=== PATIENT | male | born 1985 | race Caucasian/White ===

== ENCOUNTER 2017-01-22 09:47 | Outpatient (CLI) | payer MEDICARE, MEDICAID ==
[2017-01-22 13:05] LABS: BASOPHILS # (AUTO) 0.1 10^3/uL (0.0-0.1); BASOPHILS % (AUTO) 0.5 %; EOSINOPHILS # (AUTO) 0.2 10^3/uL (0.0-0.7); EOSINOPHILS % (AUTO) 1.7 %; HCT - HEMATOCRIT 47.5 % (42.0-52.0); HGB - HEMOGLOBIN 15.6 g/dL (14.0-18.0); LYMPHOCYTES # (AUTO) 2.4 10^3/uL (1.5-3.5); LYMPHOCYTES % (AUTO) 23.3 %; MEAN CORPUSCULAR HEMOGLOBIN 28.9 pg (27.0-31.0); MEAN CORPUSCULAR HGB CONC 32.8 g/dL (32.0-36.0); MEAN CORPUSCULAR VOLUME 88.1 fL (80.0-94.0); MEAN PLATELET VOLUME 9.9 fL (7.4-11.4); MONOCYTES # (AUTO) 0.7 10^3/uL (0.0-1.0); MONOCYTES % (AUTO) 6.8 %; NEUTROPHILS # (AUTO) 7.1 10^3/uL (1.5-6.6); NEUTROPHILS % (AUTO) 67.7 %; NUCLEATED RED BLOOD CELLS AUTO 0.1 /100WBC; RED BLOOD COUNT 5.39 10^6/uL (4.70-6.10); RED CELL DISTRIBUTION WIDTH 14.4 % (12.0-15.0); UNCORRECTED WHITE BLOOD COUNT 10.5 x10^3/uL; WHITE BLOOD COUNT 10.5 x10^3/uL (4.8-10.8)
[2017-01-22 14:03] LABS: ALBUMIN/GLOBULIN RATIO 1.4 (1.0-2.2); BILIRUBIN,TOTAL 0.6 mg/dL (0.2-1.0); BUN - BLOOD UREA NITROGEN 11 mg/dL (6-20); CARBON DIOXIDE - CO2 24 mmol/L (21-32); CHLORIDE 104 mmol/L (101-111); CHOL/HDL RATIO 3.1 (<5.0); CHOLESTEROL 138 mg/dL; CREATININE 0.9 mg/dL (0.6-1.2); GFR - MDRD 98 (>89); GLUCOSE 93 mg/dL (70-100); HDL CHOLESTEROL 45 mg/dL; LDL/HDL RATIO 1.8 (<3.6); POTASSIUM 3.6 mmol/L (3.5-5.0); SODIUM 137 mmol/L (135-145); TOTAL PROTEIN 7.7 g/dL (6.7-8.2); TRIGLYCERIDES 49 mg/dL; VLDL CHOLESTEROL 10 mg/dL
== END 2017-01-22 09:48 | disposition home or self-care (01) ==
LOC: LAB.N 09:47
PROVIDERS: ATTEND Physician Assistant Medical
DX: Q05.9 Spina bifida, unspecified (principal)
CPT/HCPCS: 36415; 80053; 80061; 84443; 85025

== ENCOUNTER 2019-08-10 12:03 | Outpatient (CLI) | payer MEDICARE, MEDICAID | END 2019-08-10 12:04 | disposition critical access hospital (66) | LOC: EMS 12:03 | PROVIDERS: ATTEND Surgery | DX: S09.90XA Unspecified injury of head, initial encounter (principal); W05.0XXA Fall from non-moving wheelchair, initial encounter; Y92.008 Other place in unspecified non-institutional (private) residence as the place of occurrence of the external cause | CPT/HCPCS: A0425; A0429 ==

== ENCOUNTER 2019-08-10 12:32 | Inpatient (IN) | payer MEDICARE, MEDICAID ==
--- NOTE | 2019-08-10 12:49 | ED Physician Documentation ---
PD HPI Fall - Stated complaint Stated Complaint: FALL - Chief complaint Chief Complaint: Trauma Ch/Bk - History obtained from History obtained from: Patient - History of Present Illness Mechanism of injury: Syncope Fall distance: Sitting position (He states he had been ill for the past week with nausea and episodic vomiting and poor intake and also a cough with some productive sputum and a sore throat. He denies fevers but has had feeling of chills and also general weakness. He was sitting in the toilet and finished going to the bathroom and then was starting to transfer from the toilet to his wheelchair and felt generally weak lightheaded and felt that he passed out. He remembered starting to fall but not the fall itself he apparently struck the left side of his face and has an abrasion and some swelling lateral periorbital and forehead. He states he also had some pain in the anterior chest. He denied neck pain or belly pain. His roommate I believe called EMS and he was brought here for evaluation.) Where injury occurred: Home Timing - onset: How many weeks ago (1 week of general illness, cough, nausea and vomiting and poor oral intake. He states he had not eaten well for the last couple of days due to nausea. He has had cough with some trouble breathing. He denied headache.) Injury(ies) location: Face, Chest (anterior chest hurts since falling). No: Head, Neck, Abdomen Quality of pain: Aching Associated symptoms: LOC, Nasal drainage, Weakness, Dyspnea, Nausea / vomiting. No: AMS, Amnesia, Paresthesias Symptoms improve with: Rest Contributing factors: No: Anticoagulated, Intoxicated Similar symptoms before: Has not had sx before Recently seen: Not recently seen (He does not take any regular daily medicines. He states he had been feeling well and doing normal activities and had not been ill for 1 or 2 years and doing well at home.) Review of Systems Constitutional: reports: Chills, Myalgias, Fatigue. denies: Fever, Weight Loss Nose: reports: Congestion. denies: Rhinorrhea / runny nose Throat: reports: Sore throat Cardiac: reports: Chest pain / pressure (just since the fall/syncope). denies: Palpitations Respiratory: reports: Dyspnea, Cough (for a week). denies: Wheezing GI: reports: Nausea, Vomiting. denies: Abdominal Pain, Diarrhea : denies: Dysuria, Frequency Skin: reports: Abrasion (s) (left face). 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 ) Endocrine/Autoimmune: None GI: None Musculoskeletal: Paraplegia - Past Surgical History Past Surgical History: Yes - Present Medications Home Medications: Ambulatory Orders Medication Instructions Recorded Confirmed No Known Home Medications 08/10/19 08/10/19 - Allergies Allergies/Adverse Reactions: Allergies Allergy/AdvReac Type Severity Reaction Status Date / Time No Known Drug Allergies Allergy Verified 08/10/19 12:40 - Social History Does the pt smoke?: Yes Smoking Status: Current every day smoker Does the pt drink ETOH?: Yes Does the pt have substance abuse?: Yes - Immunizations Immunizations are current?: Yes PD ED PE NORMAL - Vitals Vital signs reviewed: Yes - General General: Alert and oriented X 3, Well developed/nourished - HEENT HEENT: Atraumatic (he is not tender in the scalp. Shunt with reservoir palpable left parietal without tenderness. ), PERRL, EOMI, Other (left facial abrasion and contusion lateral left periorbital and forehead. ). No: Pharynx benign (tongue bruise noted left anterior without bleeding. ) - Neck Neck: Supple, no meningeal sign, No bony TTP, No adenopathy - Cardiac Cardiac: RRR, No murmur - Respiratory Respiratory: No respiratory distress. No: Clear bilaterally (mild congested sounds upper lungs. Some chest wall tenderness mid sternal area without deformity nor crepitance. ) - Abdomen Abdomen: Normal bowel sounds, Soft, Non tender, Non distended - Male Male : Deferred - Rectal Rectal: Deferred - Back Back: No CVA TTP, No spinal TTP - Derm Derm: Normal color, Warm and dry - Extremities Extremities: No edema, Other (muscle atrophy in both legs, and some clubbing shape of feet/ankles.) Results - Vitals Vitals: Vital Signs - 24 hr 08/10/19 08/10/19 08/10/19 12:40 12:51 12:52 Temperature 37.2 C 37.2 C Heart Rate 96 84 94 Respiratory 16 20 19 Rate Blood Pressure 131/74 H 122/81 H 122/81 H O2 Saturation 96 92 93 08/10/19 15:15 Temperature Heart Rate 85 Respiratory 19 Rate Blood Pressure 112/72 O2 Saturation 94 Oxygen O2 Source Room air - Labs Labs: Laboratory Tests 08/10/19 08/10/19 13:20 13:20 WBC 23.5 H RBC 4.88 Hgb 13.8 L Hct 39.6 L MCV 81.1 MCH 28.3 MCHC 34.8 RDW 12.2 Plt Count 411 MPV 10.7 Neut # (Auto) 19.8 H Lymph # (Auto) 1.6 [place] # (Auto) 1.9 H Eos # (Auto) 0.1 Baso # (Auto) 0.1 Absolute Nucleated RBC 0.00 Nucleated RBC % 0.0 Manual Slide Review Indicated WBC Morphology Platelet Estimate NORMAL (130-450,000) Platelet Morphology NORMAL APPEARANCE RBC Morph Micro Appear 2+ HYPOCHROMASIA Sodium 119 L* Potassium 1.8 L* Chloride 58 L* Carbon Dioxide 41 H* Anion Gap 20.0 H BUN 40 H Creatinine 1.3 H Estimated GFR (MDRD) 63 L Glucose 144 H Calcium 7.9 L Magnesium 3.1 H Total Bilirubin 1.8 H AST 55 H ALT 29 Alkaline Phosphatase 62 Total Protein 6.6 L Albumin 3.3 Globulin 3.3 Albumin/Globulin Ratio 1.0 Lipase 21 L Ethyl Alcohol < 5.0 - Rads (name of study) head CT Radiology: Prelim report reviewed (Shunt in place with reservoir and no acute abnormality noted. No intracranial bleeding.), See rad report cervical CT Radiology: Prelim report reviewed (No acute fractures or abnormalities.), See rad report chest CT Radiology: Prelim report reviewed (No signs of fractures. There are scattered small groundglass appearing infiltrates.), See rad report PD MEDICAL DECISION MAKING - ED course Complexity details: re-evaluated patient (The patient seem to be doing well here in the ER. He was still interacting and without any respiratory distress. Oxygenation remained normal. He was given some IV fluids initially a small bolus and then 200 mils per hour of normal saline so as to provide a slower increase in his sodium and not over hydrate. I had talked with the hospitalist and he was going to be going to the floor when he developed generalized seizure. It was noted promptly by nursing staff and he was rolled to his side and his airway was clear and suctioned. The seizure continued for over 1 to 2 minutes and so he was given Versed 2 mg IV which seemed to stop the seizure. He is now sedate. His oxygenation is adequate with a partial facemask at this time and a oral pharyngeal airway was placed to help with his breathing which was slightly's sonorous during the seizure and just postictal. This will be removed as he wakens up better. I recontacted the hospitalist and will change disposition to the ICU. This does raise possibility of his initial syncopal episode and coming to us may have been seizure instead. I would attribute it likely to the hyponatremia and illness as there is no history of seizure disorder.), considered differential, d/w patient - Critical Care Time(min): 45 Time Includes: Direct patient care, Reassess patient, Document care, Coordinate care, Medical consult Data interpretation: Labs, Pulse ox, See progress note Departure - Departure Disposition: 66 [facility] DC/Xfer Clinical Impression: General weakness, Acute pneumonia, Electrolyte abnormality, Dehydration, Seizure Syncope Qualifiers: Syncope type: unspecified Qualified Code(s): R55 - Syncope and collapse Condition: Stable Record reviewed to determine appropriate education?: Yes
[2019-08-10] MEDS ORDERED: SODIUM CHLORIDE 0.9% 1,000 ML IV ONE ×2 (13:10→14:35)
[2019-08-10] MEDS ORDERED: MORPHINE 2 MG/ML CARPUJECT IVP STA (13:14)
[2019-08-10] MEDS ORDERED: KETOROLAC 30 MG/ML VIAL IVP STA (13:14)
[2019-08-10 13:32] LABS: BASOPHILS # (AUTO) 0.1 10^3/uL (0.0-0.1); BASOPHILS % (AUTO) 0.3 %; EOSINOPHILS # (AUTO) 0.1 10^3/uL (0.0-0.7); EOSINOPHILS % (AUTO) 0.3 %; HGB - HEMOGLOBIN 13.8 g/dL (14.0-18.0); LYMPHOCYTES # (AUTO) 1.6 10^3/uL (1.5-3.5); LYMPHOCYTES % (AUTO) 6.7 %; MEAN CORPUSCULAR HEMOGLOBIN 28.3 pg (27.0-31.0); MEAN CORPUSCULAR HGB CONC 34.8 g/dL (32.0-36.0); MEAN CORPUSCULAR VOLUME 81.1 fL (80.0-94.0); MEAN PLATELET VOLUME 10.7 fL (7.4-11.4); MONOCYTES # (AUTO) 1.9 10^3/uL (0.0-1.0); MONOCYTES % (AUTO) 7.9 %; NEUTROPHILS # (AUTO) 19.8 10^3/uL (1.5-6.6); NEUTROPHILS % (AUTO) 83.8 %; PLT - PLATELET COUNT 411 10^3/uL (130-450); RED BLOOD COUNT 4.88 10^6/uL (4.70-6.10); RED CELL DISTRIBUTION WIDTH 12.2 % (12.0-15.0); WHITE BLOOD COUNT 23.5 x10^3/uL (4.8-10.8)
[2019-08-10 13:47] LABS: ALBUMIN 3.3 g/dL (3.2-5.5); ALKALINE PHOSPHATASE 62 IU/L (42-121); ALT ALANINE AMINOTRANSFERASE 29 IU/L (10-60); AST ASPARTATE AMINOTRANSFERASE 55 IU/L (10-42); BILIRUBIN,TOTAL 1.8 mg/dL (0.2-1.0); BUN - BLOOD UREA NITROGEN 40 mg/dL (6-20); CALCIUM 7.9 mg/dL (8.5-10.3); CREATININE 1.3 mg/dL (0.6-1.2); GLUCOSE 144 mg/dL (70-100); LIPASE 21 U/L (22-51); MAGNESIUM 3.1 mg/dL (1.7-2.8); TOTAL PROTEIN 6.6 g/dL (6.7-8.2)
[2019-08-10 13:49] LABS: CARBON DIOXIDE - CO2 41 mmol/L (21-32); CHLORIDE 58 mmol/L (101-111); SODIUM 119 mmol/L (135-145)
[2019-08-10] MEDS ORDERED: POTASSIUM CHLOR 10 MEQ/100 ML 10 MEQ/100 ML BAG IV ONE ×2 (13:56→14:35)
[2019-08-10 13:59] LABS: PLATELET ESTIMATE, MANUAL NORMAL (130-450,000) (NORMAL); PLATELET MORPHOLOGY NORMAL APPEARANCE (NORMAL); RBC MORPHOLOGY (MULTIPLE) 2+ HYPOCHROMASIA (NORMAL)
--- NOTE | 2019-08-10 14:05 | CT Report ---
Reason: fall with head/neck pains Procedure Date: 08/10/2019 Accession Number: [id number] / [id number] Procedure: CT - CERVICAL SPINE WO CPT Code: Final Report FULL RESULT: EXAM: CT CERVICAL SPINE WITHOUT CONTRAST DATE: 08/10/2019 01:30 PM. HISTORY: Head and neck pain after fall. COMPARISONS: None. TECHNIQUE: Thin-section axial images were acquired of the cervical spine without contrast. Post-processing: Coronal and sagittal reformats. Other: None. In accordance with CT protocol optimization, one or more of the following dose reduction techniques were utilized for this exam: automated exposure control, adjustment of mA and/or KV based on patient size, or use of iterative reconstructive technique. FINDINGS: Alignment: No scoliosis or spondylolisthesis. 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 No fracture or bone lesion. Interspace Levels/Facets: Small Schmorl's node in the C4 superior endplate. Disk space heights are maintained. No facet arthropathy. No significant bony central canal stenosis or neural foraminal narrowing. Other: No paravertebral hematoma or edema is evident. The visualized portions of the lung apices are clear. IMPRESSION: 1. 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 2. Minimal degenerative changes at C3-C4. 3. No acute bony abnormality. RADIA
--- NOTE | 2019-08-10 14:21 | CT Report ---
Reason: fall with head and neck pains Procedure Date: 08/10/2019 Accession Number: [id number] / [id number] Procedure: CT - HEAD WO CPT Code: Final Report FULL RESULT: EXAM: CT HEAD EXAM DATE: 08/10/2019 01:30 PM. CLINICAL HISTORY: Fall with head and neck pains. COMPARISON: None. TECHNIQUE: Multiaxial CT images were obtained from the foramen magnum to the vertex. Reformats: Sagittal and coronal. IV contrast: None. In accordance with CT protocol optimization, one or more of the following dose reduction techniques were utilized for this exam: automated exposure control, adjustment of mA and/or KV based on patient size, or use of iterative reconstructive technique. FINDINGS: Parenchyma: No intraparenchymal hemorrhage. No evidence of mass, midline shift, or CT findings of infarction. Scales-white differentiation is distinct. Extraaxial Spaces: Normal for age. No subdural or epidural collections identified. Ventricles: There is distortion of the ventricle, with extension to the occipital regions bilaterally. A left-sided RAILROAD FIRER shunt is noted to terminate in the anterior horn of the left lateral ventricle. There is mild fullness of the posterior left lateral ventricle. A cavum vergae is present. Sinuses and Orbits: Imaged paranasal sinuses, orbits, and mastoids show no significant abnormality. Bones: No evidence of fracture or calvarial defect. Other: None. IMPRESSION: 1. No CT evidence of acute intracranial disease. 2. Distortion of the ventricle posteriorly, extending to the occipital regions along the midline. A cavum vergae is present, with left-sided RAILROAD FIRER shunt terminating in the anterior horn of the left lateral ventricle. Consider congenital, less likely posttraumatic etiologies. No acute hemorrhage noted. RADIA
--- NOTE | 2019-08-10 14:23 | CT Report ---
Reason: fall with pain sternal/ribs frontal area Procedure Date: 08/10/2019 Accession Number: [id number] / [id number] Procedure: CT - CHEST WO CPT Code: Final Report FULL RESULT: EXAM: CT CHEST EXAM DATE: 08/10/2019 01:43 PM. CLINICAL HISTORY: Fall with pain sternal/ribs frontal area. COMPARISONS: HEAD WO 08/10/2019 1:30 PM. TECHNIQUE: Routine helical CT imaging was performed through the chest. IV contrast: None. Reconstructions: Coronal and sagittal. In accordance with CT protocol optimization, one or more of the following dose reduction techniques were utilized for this exam: automated exposure control, adjustment of mA and/or KV based on patient size, or use of iterative reconstructive technique. FINDINGS: Lungs/Pleura: There are multiple relatively small focal areas of groundglass density bilaterally in the upper lobes as well as in the left lung base. For example, a focus in the anterior left upper lobe on series 4 image 43 measures approximately 0.8 cm. No pneumothorax or pleural effusion. There is respiratory motion artifact in the lower lungs. Mediastinum: The esophagus is fluid-filled and dilated. No pathologic adenopathy. Normal heart size. No retrosternal hematoma. Bones: No acute or suspicious skeletal abnormalities. Visualized Abdomen: Tiny nonobstructing calculus in the left kidney on series 2 image 101. Other: Subcutaneous nodule in the midline anterior chest wall series 2 image 44, suspected sebaceous cyst. IMPRESSION: 1. No acute fractures are evident. 2. There are nodular areas of groundglass density in the bilateral upper lobes as well as the left lower lobe. Depending on the mechanism of injury, pulmonary hemorrhage is possible. Other considerations might include atypical infection such as viral, noncardiogenic pulmonary edema, hypersensitivity pneumonitis, drug reaction. 3. Distended, fluid-filled esophagus. RADIA
[2019-08-10] MEDS ORDERED: cefTRIAXone 1 GM VIAL IVP STA (14:41)
[2019-08-10] MEDS ORDERED: AZITHROMYCIN INJ 500 MG in SODIUM CHLORIDE 0.9% 250 ML IV STA (15:03)
[2019-08-10] MEDS ORDERED: PROCHLORPERAZINE 10 MG/2 ML VIAL IVP PRN (15:53)
[2019-08-10] MEDS ORDERED: ACETAMINOPHEN 325 MG TABLET PO PRN (15:53)
[2019-08-10] MEDS ORDERED: ONDANSETRON 4 MG/2 ML VIAL IVP PRN (15:53)
[2019-08-10] MEDS ORDERED: MIDAZOLAM 2 MG/2 ML VIAL IVP ONE (16:38)
[2019-08-10] MEDS ORDERED: MIDAZOLAM 2 MG/2 ML VIAL ONE (16:42)
--- NOTE | 2019-08-10 16:43 | PHARMACY PROGRESS NOTE ---
- Best Possible Medication History Admit Date and Time: 08/10/19 1551 Processed by: Nursing Medication History completed: Yes As the person ultimately responsible for medication therapy, providers are able to order a medication from an existing home medication list in [facility] via the "Reconcile Routine" prior to Confirmation of that medication by application support lead. Such practice is discouraged except when the physician, in their clinical judgment, deems that a medical need exists for a medication without regard to previous use.
[2019-08-10] MEDS ORDERED: levETIRAcetam INJ 1,000 MG in SODIUM CHLORIDE 0.9% 100ML 100 ML IV ONE (16:48)
[2019-08-10] MEDS ORDERED: SODIUM CHLORIDE 3% HYPERTONIC 100 ML IV SCH (17:00)
[2019-08-10] MEDS ORDERED: LORazepam 2 MG/ML VIAL IVP PRN ×2 (17:02→17:04)
[2019-08-10] MEDS: D5NS W/20 MEQ KCL 1,000 ML IV SCH ×2 (18:30→23:36)
[2019-08-10] MEDS: SODIUM CHLORIDE FLUSH 0.9% 10 ML SYRINGE IVP SCH ×2 (18:30→20:11)
[2019-08-10] MEDS: FAMOTIDINE 20 MG/2 ML SYRINGE IVP SCH (20:11)
[2019-08-10 20:32] LABS: CALCIUM 6.9 mg/dL (8.5-10.3); CREATININE 1.1 mg/dL (0.6-1.2)
[2019-08-10] MEDS: POTASSIUM CHLOR 10 MEQ/100 ML 10 MEQ/100 ML BAG IV SCH ×4 (21:17→23:57)
--- NOTE | 2019-08-10 22:36 | HISTORY & PHYSICAL EXAMINATION ---
DATE OF SERVICE: 08/10/2019 Physician: Allyson Clarke MD HISTORY OF PRESENT ILLNESS: This is a 33-year-old male with history of spina bifida, congenital brain abnormality and a COPY WORKER brain shunt, and he is wheelchair bound. He requires caregivers; he lives with his mother. He had one week of weakness, sore throat, cough and overall achiness and then more recent nausea, vomiting and poor p.o. intake for several days. Today, when he was transferring from the bath tub to his wheelchair, he had lightheadedness and then had syncope, fell on the side of his face and did present with abrasion of his cheek. In the emergency room, he underwent CT of the head and neck and there were no traumas or fractured areas found. Because of a description of cough, he also had a CT of his chest, when looking for rib fractures, which was negative for fractures. The parenchyma of the lungs, however, was read as having ground glass abnormalities bilaterally. He also has multiple electrolyte abnormalities and was tested for COVID and has been started on respiratory isolation. The patient was to be admitted for IV fluids, IV antibiotics, and symptomatic treatment, and then he had a witnessed seizure, tonic-clonic, in the emergency room. He was given IV Versed 2 mg, which stopped the seizure, and then he also received Keppra 1 gram IV load. He will be now admitted to the ICU. PAST MEDICAL HISTORY 1. Spina bifida. 2. Brain shunt. 3. Wheelchair bound. MEDICATIONS: None. ALLERGIES: NONE. REVIEW OF SYSTEMS: This was obtained from chart review since he is now sedated and the pertinent positives are listed above, the rest are negative. FAMILY HISTORY: Unknown and not listed in his chart, and he could not answer currently. SOCIAL HISTORY: The patient is a daily smoker, unknown amount. He does use alcohol, unknown amount. There is a past history of substance abuse, unknown details. PHYSICAL EXAMINATION GENERAL: Sedated male. VITAL SIGNS: Blood pressure 120/70, heart rate 80 in sinus rhythm, afebrile, room air saturation 90-99%, and therefore, he was put on 3 liters nasal cannula, which gave him 100% saturation. HEENT: Reveals that he is sedated, moist oral mucosa is apparent. NECK: No JVD. CHEST: Clear. HEART: Normal heart sounds. ABDOMEN: Soft. EXTREMITIES: No edema. The posture and musculature appears flaccid in the lower extremities. NEUROLOGIC: He is currently sedated and a neuro exam could not be done. LABORATORY DATA: Sodium 119, potassium 1.8, carbon dioxide 41, anion gap 20, BUN 40, creatinine 1.3, glucose 144. Magnesium 3.1. AST 55, ALT 29. Lipase normal at 21. No INR was done. CBC showed a white count of 23.5 with a left shift, hemoglobin 13.8 with MCV 81, RDW normal, platelet count normal at 411. Toxicology showed no alcohol present. EKG: Normal sinus rhythm, left atrial enlargement, inferolateral T-wave flattening, prolonged QT interval of 602 msec. IMAGING: Head, C-spine and chest: No evidence of acute intracranial disease. There was distortion of the ventricle posteriorly along the midline with a left COPY WORKER shunt terminating in the anterior horn of the left lateral ventricle is noted. There were no areas of fracture seen and he has mild degenerative changes at C3-C4 and congenital incomplete fusion of C1, which is a normal variant. Chest CT shows no rib fractures. There are ground glass densities in bilateral lobes in the upper areas, as well as left lower lobe. He also has a full esophagus. IMPRESSION/DIAGNOSES 1. Syncope at home. 2. Seizure, witnessed here. 3. Community-acquired pneumonia. 4. COVID suspected. 5. Acute kidney injury. 6. Hyponatremia. 7. Hypokalemia. 8. Spina bifida. 9. Wheelchair bound. 10. Alcohol abuse, suspected. 11. Elevated liver function test. 12. Tobacco use. PLAN: Admit the patient to the ICU with neuro checks. Continue telemetry. Continue with IV fluids, saline bolus was given in the ER and now continue D5 with saline here. Correct the potassium carefully, repeat the BMP in several hours. Continue with Keppra after the loading dose, 500 mg IV b.i.d. will be continued. Treat empirically for community-acquired pneumonia with IV ceftriaxone and Zithromax. When he is able to swallow, begin Vitamin C and Vitamin D immunotherapy for potential viral infection. COVID swabbing was done in the ER, results are pending. Continue with respiratory isolation. Continue supplemental oxygen as needed. When he is awake, symptomatic treatment for any cough and nausea and vomiting. Advance his diet as tolerated after that. Once he has test resuktred COVID neg, obtain an Echo for evaluation of the cause of syncope and for any structural heart disease. Follow BMP daily, white blood count daily. CODE STATUS: FULL CODE. DEEP VENOUS THROMBOSIS PROPHYLAXIS: SCDs. ATTESTATION: The patient is expected to be discharged or transferred to another facility within 96 hours: Yes. TD: 08/10/2019 20:22 GEORGE
[2019-08-11] MEDS: METOCLOPRAMIDE 10 MG/2 ML VIAL IVP PRN ×4 (00:17→22:25)
[2019-08-11] MEDS: SODIUM CHLORIDE FLUSH 0.9% 10 ML SYRINGE IVP PRN ×3 (00:18→05:49)
[2019-08-11] MEDS: D5NS W/20 MEQ KCL 1,000 ML IV SCH ×4 (00:20→20:56)
[2019-08-11] MEDS: POTASSIUM CHLOR 10 MEQ/100 ML 10 MEQ/100 ML BAG IV SCH ×11 (01:10→23:49)
[2019-08-11 01:31] LABS: PHOSPHORUS 1.5 mg/dL (2.5-4.6)
[2019-08-11] MEDS ORDERED: POTASSIUM PHOSPHATE 21 MMOL in SODIUM CHLORIDE 0.9% 250 ML IV ONE (01:36)
[2019-08-11 05:00] LABS: BASOPHILS % (AUTO) 0.1 %; EOSINOPHILS % (AUTO) 0.1 %; HGB - HEMOGLOBIN 11.2 g/dL (14.0-18.0); LYMPHOCYTES # (AUTO) 1.9 10^3/uL (1.5-3.5); LYMPHOCYTES % (AUTO) 12.6 %; MEAN CORPUSCULAR HEMOGLOBIN 28.9 pg (27.0-31.0); MEAN PLATELET VOLUME 10.2 fL (7.4-11.4); MONOCYTES # (AUTO) 1.1 10^3/uL (0.0-1.0); MONOCYTES % (AUTO) 7.4 %; NEUTROPHILS # (AUTO) 11.6 10^3/uL (1.5-6.6); NEUTROPHILS % (AUTO) 79.3 %; PLT - PLATELET COUNT 355 10^3/uL (130-450); RED BLOOD COUNT 3.87 10^6/uL (4.70-6.10); RED CELL DISTRIBUTION WIDTH 12.8 % (12.0-15.0); WHITE BLOOD COUNT 14.7 x10^3/uL (4.8-10.8)
[2019-08-11 05:01] LABS: VBG PH 7.556 (7.31-7.41)
[2019-08-11 05:13] LABS: MAGNESIUM 2.9 mg/dL (1.7-2.8)
[2019-08-11 05:14] LABS: ALBUMIN 2.5 g/dL (3.2-5.5); BILIRUBIN,DIRECT 0.2 mg/dL (0.1-0.5); BILIRUBIN,TOTAL 0.8 mg/dL (0.2-1.0); CALCIUM 7.2 mg/dL (8.5-10.3); CREATININE 0.9 mg/dL (0.6-1.2); TOTAL PROTEIN 5.3 g/dL (6.7-8.2)
[2019-08-11] MEDS: levETIRAcetam INJ 500 MG in SODIUM CHLORIDE 0.9% 100ML 100 ML IV SCH ×3 (08:49→20:56)
[2019-08-11] MEDS ORDERED: ASCORBIC ACID CHEW 500 MG TABLET PO SCH (09:00)
[2019-08-11] MEDS ORDERED: CHOLECALCIFEROL 400 UNIT TABLET PO SCH (09:00)
[2019-08-11] MEDS ORDERED: ENOXAPARIN 40 MG/0.4 ML SYRINGE SUBQ SCH (09:00)
[2019-08-11] MEDS: FAMOTIDINE 20 MG/2 ML SYRINGE IVP SCH ×2 (09:14→20:55)
[2019-08-11] MEDS: SODIUM CHLORIDE FLUSH 0.9% 10 ML SYRINGE IVP SCH ×2 (09:14→17:37)
--- NOTE | 2019-08-11 11:23 | PROVIDER PROGRESS NOTE ---
Assessment/Plan - Problem List (2) Syncope Qualifiers: Syncope type: unspecified Qualified Code(s): R55 - Syncope and collapse (8) N&V (nausea and vomiting) Assessment/Plan: Tolerated water Will advance diet Antiemetics prn - Current Meds Current Meds: Current Medications Generic Name Dose Route Start Last Admin Trade Name Freq PRN Reason Stop Dose Admin Famotidine 20 mg 08/10/19 21:00 08/11/19 09:14 Pepcid IVP 20 mg BID SAMI Administration Potassium Chloride/Dextrose/Sod Cl 1,000 mls @ 150 mls/hr 08/10/19 16:00 08/11/19 07:00 IV 150 mls/hr .Q6H40M SAMI Infusion Levetiracetam 500 mg/ Sodium 105 mls @ 400 mls/hr 08/11/19 08:00 08/11/19 10:13 Chloride IV Not Given BID SAMI Potassium Chloride 10 meq in 100 mls @ 100 mls/hr 08/11/19 07:00 08/11/19 10:58 Potassium Chloride IV 08/11/19 12:59 100 mls/hr Q1H SAMI Administration Metoclopramide HCl 5 mg 08/11/19 00:03 08/11/19 05:49 Reglan Inj IVP 5 mg Q6HR PRN Administration Nausea / Vomiting Sodium Chloride 10 ml 08/10/19 15:53 08/11/19 05:49 Normal Saline Flush 0.9% IVP 10 ml PRN PRN Administration NEEDED PER PROVIDER ORDERS Sodium Chloride 10 ml 08/10/19 17:00 08/11/19 09:14 Normal Saline Flush 0.9% IVP 10 ml 0100,0900,1700 SAMI Administration - Lab Result Fish Bone Diagrams: 08/11/19 04:49 08/11/19 04:49 - Additional Planning My Orders: My Active Orders 08/10/19 15:53 Activity Orders [RC] Q2HR Initiate Bowel Care Protocol [RC] .protocol Initiate Flu Vaccine Screening [RC] ONCE Initiate Personal Care Protoco [RC] .protocol Initiate Pneumonia Vaccine Scr [RC] ONCE Initiate Secretion Clearance P [RC] .PROTOCOL Oxygen Therapy [RC] .PRN Ondansetron Inj [Zofran Inj] 4 mg IVP Q6HR PRN Prochlorperazine Inj [Compazine Inj] 10 mg IVP Q6HR PRN Sodium Chloride Flush 0.9% [Normal Saline Flush 0.9%] 10 ml IVP PRN PRN Code Status [OTHERS] Routine Condition of Patient [OTHERS] Routine DVT Prophylaxis [OTHERS] Routine 08/10/19 15:54 Daily Weight [RC] 0600 08/10/19 15:56 Initiate Line Care Protocol [RC] QSHIFT 08/10/19 16:00 D5ns W/20 Meq KCl 1,000 ml IV 150 mls/hr 08/10/19 16:53 Hernandez Insertion [RC] QSHIFT Vital Signs [RC] Q1HR 08/10/19 16:54 IO [RC] Q1HR Initiate ICU Electrolyte Prot. [RC] .protocol 08/10/19 16:56 Blood Glucose POC [RC] Routine Oral Care - Nursing [RC] Routine Telemetry- [RC] Q4HR Turn and Reposition [RC] Routine 08/10/19 17:00 Sodium Chloride Flush 0.9% [Normal Saline Flush 0.9%] 10 ml IVP 0100,0900,1700 08/10/19 17:04 Neuro Check [RC] Q1-2H LORazepam INJ [Ativan Inj (Vial)] 2 mg IVP Q4H PRN 08/10/19 21:00 Famotidine [Pepcid] 20 mg IVP BID 08/11/19 08:00 levETIRAcetam INJ [Keppra Inj] 500 mg Sodium Chloride 0.9% 100Ml [Normal Saline 0.9% 100Ml] 100 ml IV BID 08/11/19 10:42 Calcium Gluconate 2,000 mg Sodium Chloride 0.9% 100Ml [Normal Saline 0.9% 100Ml] 100 ml IV ONCE 08/11/19 10:45 Potassium Phosphate 15 mmol Sodium Chloride 0.9% [Normal Saline 0.9%] 250 ml IV ONCE 08/11/19 11:00 Calcium Gluconate 2,000 mg Sodium Chloride 0.9% 100Ml [Normal Saline 0.9% 100Ml] 100 ml IV ONCE Calcium Gluconate/NS 1,000 mg/50 mL over 15 min x 1 Calcium Gluconate 1,000 mg Sodium Chloride 0.9% [Normal Saline 0.9%] 50 ml IV ONCE Potassium Phosphate 15 mmol Sodium Chloride 0.9% [Normal Saline 0.9%] 250 ml IV ONCE 08/11/19 11:19 Calcium Gluconate/NS 2,000 mg/100 mL x 1 Calcium Gluconate 2,000 mg Sodium Chloride 0.9% 100Ml [Normal Saline 0.9% 100Ml] 100 ml IV ONCE 08/11/19 11:20 Potassium Phosphate/NS 15 mmol/250 mL x 1 Potassium Phosphate 15 mmol Sodium Chloride 0.9% [Normal Saline 0.9%] 250 ml IV ONCE 08/11/19 Dinner DIET [Soft Mechanical Diet] [DIET] 08/11/19 Lunch DIET [Dysphagia Puree Diet] [DIET] 08/12/19 05:00 ALBUMIN [CHEM] DAILYLAB BMP - BASIC METABOLIC PANEL [CHEM] DAILYLAB CALCIUM, IONIZED ([facility]) [BG] DAILYLAB CBC - COMP BLD CT W/AUTO DIFF [HEME] DAILYLAB MAGNESIUM [CHEM] DAILYLAB PHOSPHORUS [CHEM] DAILYLAB 08/13/19 05:00 ALBUMIN [CHEM] DAILYLAB BMP - BASIC METABOLIC PANEL [CHEM] DAILYLAB CALCIUM, IONIZED ([facility]) [BG] DAILYLAB CBC - COMP BLD CT W/AUTO DIFF [HEME] DAILYLAB MAGNESIUM [CHEM] DAILYLAB PHOSPHORUS [CHEM] DAILYLAB 08/14/19 05:00 BMP - BASIC METABOLIC PANEL [CHEM] DAILYLAB CBC - COMP BLD CT W/AUTO DIFF [HEME] DAILYLAB 08/15/19 05:00 BMP - BASIC METABOLIC PANEL [CHEM] DAILYLAB CBC - COMP BLD CT W/AUTO DIFF [HEME] DAILYLAB Subjective - Subjective Patient Reports: Other (Is hungry, asking for a diet, tolerated drinking water, no vomitong) Objective Vital Signs: Vital Signs - 24 hr 08/10/19 08/10/19 08/10/19 12:40 12:51 12:52 Temperature 37.2 C 37.2 C Heart Rate 96 84 94 Heart Rate [ Monitoring electrodes] Respiratory 16 20 19 Rate Blood Pressure 131/74 H 122/81 H 122/81 H Blood Pressure [Right Brachial artery] O2 Saturation 96 92 93 08/10/19 08/10/19 08/10/19 15:15 16:43 16:46 Temperature Heart Rate 85 89 85 Heart Rate [ Monitoring electrodes] Respiratory 19 18 17 Rate Blood Pressure 112/72 154/113 H 122/71 Blood Pressure [Right Brachial artery] O2 Saturation 94 99 98 08/10/19 08/10/19 08/10/19 17:03 17:29 18:10 Temperature 37.1 C Heart Rate 83 87 Heart Rate [ 83 Monitoring electrodes] Respiratory 20 18 116 H Rate Blood Pressure 105/77 111/65 Blood Pressure 126/71 [Right Brachial artery] O2 Saturation 99 99 90 L 08/10/19 08/10/19 08/10/19 19:00 20:00 21:00 Temperature Heart Rate Heart Rate [ 77 89 80 Monitoring electrodes] Respiratory 16 15 19 Rate Blood Pressure Blood Pressure 98/76 139/89 H 117/71 [Right Brachial artery] O2 Saturation 100 100 98 08/10/19 08/10/19 08/10/19 22:00 22:09 23:00 Temperature 37.3 C Heart Rate Heart Rate [ 71 76 Monitoring electrodes] Respiratory 23 23 16 Rate Blood Pressure Blood Pressure 121/75 111/64 [Right Brachial artery] O2 Saturation 93 99 94 08/11/19 08/11/19 08/11/19 00:00 01:00 02:00 Temperature Heart Rate Heart Rate [ 78 82 76 Monitoring electrodes] Respiratory 28 H 19 17 Rate Blood Pressure Blood Pressure 114/70 114/56 L 111/60 [Right Brachial artery] O2 Saturation 99 99 96 08/11/19 08/11/19 08/11/19 03:00 04:00 05:00 Temperature 37.8 C H Heart Rate Heart Rate [ 77 91 81 Monitoring electrodes] Respiratory 21 22 14 Rate Blood Pressure Blood Pressure 82/68 L 105/79 125/97 H [Right Brachial artery] O2 Saturation 93 92 94 08/11/19 08/11/19 08/11/19 06:00 07:00 08:00 Temperature 37.7 C H Heart Rate Heart Rate [ 81 86 85 Monitoring electrodes] Respiratory 21 22 24 Rate Blood Pressure Blood Pressure 116/70 114/70 116/65 [Right Brachial artery] O2 Saturation 98 90 L 86 L 08/11/19 09:00 Temperature Heart Rate Heart Rate [ 77 Monitoring electrodes] Respiratory 19 Rate Blood Pressure Blood Pressure 121/77 [Right Brachial artery] O2 Saturation 97 Oxygen O2 Source Nasal cannula I&O (Last 24 Hrs): Intake and Output Totals x24h 08/09/19 08/10/19 08/11/19 23:59 23:59 23:59 Intake Total 3601.666 2050.333 Output Total 1825 4305 Balance 9537.981 -179.295 - Results Results: Laboratory Results WBC 14.7 x10^3/uL (4.8-10.8) H 08/11/19 04:49 RBC 3.87 10^6/uL (4.70-6.10) L 08/11/19 04:49 Hgb 11.2 g/dL (14.0-18.0) L 08/11/19 04:49 Hct 32.9 % (42.0-52.0) L 08/11/19 04:49 MCV 85.0 fL (80.0-94.0) 08/11/19 04:49 MCH 28.9 pg (27.0-31.0) 08/11/19 04:49 MCHC 34.0 g/dL (32.0-36.0) 08/11/19 04:49 RDW 12.8 % (12.0-15.0) 08/11/19 04:49 Plt Count 355 10^3/uL (130-450) 08/11/19 04:49 MPV 10.2 fL (7.4-11.4) 08/11/19 04:49 Neut # (Auto) 11.6 10^3/uL (1.5-6.6) H 08/11/19 04:49 Lymph # (Auto) 1.9 10^3/uL (1.5-3.5) 08/11/19 04:49 Braxton # (Auto) 1.1 10^3/uL (0.0-1.0) H 08/11/19 04:49 Eos # (Auto) 0.0 10^3/uL (0.0-0.7) 08/11/19 04:49 Baso # (Auto) 0.0 10^3/uL (0.0-0.1) 08/11/19 04:49 Absolute Nucleated RBC 0.00 x10^3/uL 08/11/19 04:49 Nucleated RBC % 0.0 /100WBC 08/11/19 04:49 Manual Slide Review Indicated 08/10/19 13:20 WBC Morphology (NORMAL) 08/10/19 13:20 Platelet Estimate NORMAL (130-450,000) (NORMAL) 08/10/19 13:20 Platelet Morphology NORMAL APPEARANCE (NORMAL) 08/10/19 13:20 RBC Morph Micro Appear 2+ HYPOCHROMASIA (NORMAL) 08/10/19 13:20 VBG pH 7.556 (7.31-7.41) H 08/11/19 04:49 Ionized Calcium 0.96 mmol/L (1.15-1.33) L 08/11/19 04:49 Sodium 134 mmol/L (135-145) L 08/11/19 04:49 Potassium 2.7 mmol/L (3.5-5.0) L 08/11/19 04:49 Chloride 87 mmol/L (101-111) L 08/11/19 04:49 Carbon Dioxide 38 mmol/L (21-32) H 08/11/19 04:49 Anion Gap 9.0 (6-13) 08/11/19 04:49 BUN 20 mg/dL (6-20) 08/11/19 04:49 Creatinine 0.9 mg/dL (0.6-1.2) 08/11/19 04:49 Estimated GFR (MDRD) 97 (>89) 08/11/19 04:49 Glucose 137 mg/dL (70-100) H 08/11/19 04:49 Calcium 7.2 mg/dL (8.5-10.3) L 08/11/19 04:49 Phosphorus 2.0 mg/dL (2.5-4.6) L 08/11/19 04:49 Magnesium 2.9 mg/dL (1.7-2.8) H 08/11/19 04:49 Total Bilirubin 0.8 mg/dL (0.2-1.0) 08/11/19 04:49 Direct Bilirubin 0.2 mg/dL (0.1-0.5) 08/11/19 04:49 AST 45 IU/L (10-42) H 08/11/19 04:49 ALT 22 IU/L (10-60) 08/11/19 04:49 Alkaline Phosphatase 44 IU/L (42-121) 08/11/19 04:49 CK-MB (CK-2) 4.0 ng/mL (0.6-6.3) 08/11/19 04:49 Total Protein 5.3 g/dL (6.7-8.2) L 08/11/19 04:49 Albumin 2.5 g/dL (3.2-5.5) L 08/11/19 04:49 Globulin 2.8 g/dL (2.1-4.2) 08/11/19 04:49 Albumin/Globulin Ratio 1.0 (1.0-2.2) 08/10/19 13:20 Lipase 21 U/L (22-51) L 08/10/19 13:20 Nasal Screen MRSA (PCR) NEGATIVE (NEGATIVE) 08/10/19 18:15 Ethyl Alcohol < 5.0 mg/dL 08/10/19 13:20
[2019-08-11] MEDS ORDERED: CALCIUM GLUCONATE 2,000 MG in SODIUM CHLORIDE 0.9% 100ML 100 ML IV ONE (12:00)
[2019-08-11] MEDS ORDERED: POTASSIUM PHOSPHATE 15 MMOL in SODIUM CHLORIDE 0.9% 250 ML IV ONE (13:00)
[2019-08-11] MEDS: CHOLECALCIFEROL 400 UNIT TABLET PO SCH (13:17)
[2019-08-11] MEDS: ASCORBIC ACID CHEW 500 MG TABLET PO SCH (13:17)
[2019-08-11] MEDS ORDERED: cefTRIAXone 1 GM in SODIUM CHLORIDE 0.9% MINIBAG 100 ML IV SCH (14:00)
[2019-08-11] MEDS: cefTRIAXone 2 GM in SODIUM CHLORIDE 0.9% MINIBAG 100 ML IV SCH (14:19)
[2019-08-11] MEDS: AZITHROMYCIN INJ 500 MG in SODIUM CHLORIDE 0.9% 250 ML IV SCH (14:56)
[2019-08-11] MEDS: ACETAMINOPHEN 325 MG TABLET PO PRN (18:53)
--- NOTE | 2019-08-11 19:40 | PROVIDER PROGRESS NOTE ---
Assessment/Plan - Problem List (1) Seizure Assessment/Plan: He is on Keppra 500 IV twice daily. We will continue this until there is correction of his significant hyponatremia. He may need guidance from Neurology as to whether Keppra needs to be continued after discharge. (2) Syncope Qualifiers: Syncope type: unspecified Qualified Code(s): R55 - Syncope and collapse Assessment/Plan: This may have been a seizure at his home versus true syncope from volume depletion related to the 1 week of gastrointestinal symptoms. When we are sure that he is COVID negative, will obtain an Echo as part of syncope evaluation. (3) Suspected COVID-19 virus infection Assessment/Plan: The COVID swab result returned negative today, was tested yesterday. Because he has symptoms that are very consistent with the typical presentation: Fever, nausea vomiting, shortness of breath, cough, bilateral groundglass infiltrates, this may be a false-negative COVID result. Will continue respiratory isolation and repeat a COVID swab test today. (4) LASHAE (acute kidney injury) Assessment/Plan: Very slight improvement in his elevated BUN over creatinine. Continue with hydration. Avoid nephrotoxins Follow BMP daily. (5) Hyponatremia Assessment/Plan: He has had correction of his sodium into a low normal range (faster than was expected with his IV saline management). We will decrease the saline rate and type of IV. Follow BMP daily (6) Hypokalemia Assessment/Plan: Improving, he still needs correction. We will give careful potassium replacement because of the elevated creatinine. Follow BMP daily. (7) Hypophosphatemia Assessment/Plan: Replace. Follow daily (8) Dehydration Assessment/Plan: Improving, continue with IV hydration as his oral intake with liquids is as sessed. (9) Spina bifida Assessment/Plan: As per history. He is wheelchair-bound at baseline. (10) N&V (nausea and vomiting) Assessment/Plan: Resolved Will advance his diet as tolerated - Current Meds Current Meds: Current Medications Generic Name Dose Route Start Last Admin Trade Name Freq PRN Reason Stop Dose Admin Acetaminophen 650 mg 08/11/19 06:51 08/11/19 18:53 Tylenol PO 650 mg Q6HR PRN Administration Pain or Fever > 38C (100.4F) Ascorbic Acid 500 mg 08/11/19 13:00 08/11/19 13:17 Vitamin C PO 500 mg DAILY SAMI Administration Cholecalciferol 800 unit 08/11/19 13:00 08/11/19 13:17 Vitamin D3 PO 800 unit DAILY SAMI Administration Famotidine 20 mg 08/10/19 21:00 08/11/19 09:14 Pepcid IVP 20 mg BID SAMI Administration Potassium Chloride/Dextrose/Sod Cl 1,000 mls @ 150 mls/hr 08/10/19 16:00 08/11/19 13:16 IV 150 mls/hr .Q6H40M SAMI Administration Levetiracetam 500 mg/ Sodium 105 mls @ 400 mls/hr 08/11/19 08:00 08/11/19 10:13 Chloride IV Not Given BID SAMI Azithromycin 500 mg/ Sodium 250 mls @ 250 mls/hr 08/11/19 15:00 08/11/19 16:04 Chloride IV 08/12/19 15:59 Infused DAILY@1500 SAMI Infusion Ceftriaxone Sodium 2 gm/ 100 mls @ 200 mls/hr 08/11/19 14:00 08/11/19 14:49 Sodium Chloride IV Infused DAILY SAMI Infusion Metoclopramide HCl 5 mg 08/11/19 00:03 08/11/19 16:07 Reglan Inj IVP 5 mg Q6HR PRN Administration Nausea / Vomiting Sodium Chloride 10 ml 08/10/19 15:53 08/11/19 05:49 Normal Saline Flush 0.9% IVP 10 ml PRN PRN Administration NEEDED PER PROVIDER ORDERS Sodium Chloride 10 ml 08/10/19 17:00 08/11/19 17:37 Normal Saline Flush 0.9% IVP 10 ml 0100,0900,1700 SAMI Administration - Lab Result Fish Bone Diagrams: 08/11/19 04:49 08/11/19 18:57 - Additional Planning My Orders: My Active Orders 08/10/19 21:00 Famotidine [Pepcid] 20 mg IVP BID 08/11/19 08:00 levETIRAcetam INJ [Keppra Inj] 500 mg Sodium Chloride 0.9% 100Ml [Normal Saline 0.9% 100Ml] 100 ml IV BID 08/11/19 10:42 Calcium Gluconate 2,000 mg Sodium Chloride 0.9% 100Ml [Normal Saline 0.9% 100Ml] 100 ml IV ONCE 08/11/19 10:45 Potassium Phosphate 15 mmol Sodium Chloride 0.9% [Normal Saline 0.9%] 250 ml IV ONCE 08/11/19 11:00 Calcium Gluconate 2,000 mg Sodium Chloride 0.9% 100Ml [Normal Saline 0.9% 100Ml] 100 ml IV ONCE Calcium Gluconate/NS 1,000 mg/50 mL over 15 min x 1 Calcium Gluconate 1,000 mg Sodium Chloride 0.9% [Normal Saline 0.9%] 50 ml IV ONCE Potassium Phosphate 15 mmol Sodium Chloride 0.9% [Normal Saline 0.9%] 250 ml IV ONCE 08/11/19 13:00 Ascorbic Acid Chew [Vitamin C] 500 mg PO DAILY Cholecalciferol [Vitamin D3] 800 unit PO DAILY 08/11/19 14:00 cefTRIAXone [Rocephin] 2 gm Sodium Chloride 0.9% Minibag [Normal Saline 0.9% Minibag] 100 ml IV DAILY 08/11/19 17:30 COVID-19 REFERENCE TEST Routine 08/11/19 Dinner DIET [Soft Mechanical Diet] [DIET] 08/12/19 05:00 ALBUMIN [CHEM] DAILYLAB BMP - BASIC METABOLIC PANEL [CHEM] DAILYLAB CALCIUM, IONIZED ([facility]) [BG] DAILYLAB CBC - COMP BLD CT W/AUTO DIFF [HEME] DAILYLAB MAGNESIUM [CHEM] DAILYLAB PHOSPHORUS [CHEM] DAILYLAB 08/13/19 05:00 ALBUMIN [CHEM] DAILYLAB BMP - BASIC METABOLIC PANEL [CHEM] DAILYLAB CALCIUM, IONIZED ([facility]) [BG] DAILYLAB CBC - COMP BLD CT W/AUTO DIFF [HEME] DAILYLAB MAGNESIUM [CHEM] DAILYLAB PHOSPHORUS [CHEM] DAILYLAB 08/14/19 05:00 BMP - BASIC METABOLIC PANEL [CHEM] DAILYLAB CBC - COMP BLD CT W/AUTO DIFF [HEME] DAILYLAB 08/15/19 05:00 BMP - BASIC METABOLIC PANEL [CHEM] DAILYLAB CBC - COMP BLD CT W/AUTO DIFF [HEME] DAILYLAB Subjective - Subjective Patient Reports: Other (Tolerated a glass of water without choking or aspiration. He is hungry and asking for advancing of the diet.) Objective Vital Signs: Vital Signs - 24 hr 08/10/19 08/10/19 08/10/19 20:00 21:00 22:00 Temperature Heart Rate [ 89 80 71 Monitoring electrodes] Respiratory 15 19 23 Rate Blood Pressure 139/89 H 117/71 121/75 [Right Brachial artery] O2 Saturation 100 98 93 08/10/19 08/10/19 08/11/19 22:09 23:00 00:00 Temperature 37.3 C Heart Rate [ 76 78 Monitoring electrodes] Respiratory 23 16 28 H Rate Blood Pressure 111/64 114/70 [Right Brachial artery] O2 Saturation 99 94 99 08/11/19 08/11/19 08/11/19 01:00 02:00 03:00 Temperature Heart Rate [ 82 76 77 Monitoring electrodes] Respiratory 19 17 21 Rate Blood Pressure 114/56 L 111/60 82/68 L [Right Brachial artery] O2 Saturation 99 96 93 08/11/19 08/11/19 08/11/19 04:00 05:00 06:00 Temperature 37.8 C H Heart Rate [ 91 81 81 Monitoring electrodes] Respiratory 22 14 21 Rate Blood Pressure 105/79 125/97 H 116/70 [Right Brachial artery] O2 Saturation 92 94 98 08/11/19 08/11/19 08/11/19 07:00 08:00 09:00 Temperature 37.7 C H Heart Rate [ 86 85 77 Monitoring electrodes] Respiratory 22 24 19 Rate Blood Pressure 114/70 116/65 121/77 [Right Brachial artery] O2 Saturation 90 L 86 L 97 08/11/19 08/11/19 08/11/19 11:00 12:00 13:00 Temperature 36.4 C L Heart Rate [ 75 88 78 Monitoring electrodes] Respiratory 15 24 19 Rate Blood Pressure 124/88 H 118/90 H 119/76 [Right Brachial artery] O2 Saturation 98 97 98 08/11/19 08/11/19 08/11/19 14:00 15:00 16:00 Temperature 37.4 C Heart Rate [ 85 101 H 74 Monitoring electrodes] Respiratory 19 13 18 Rate Blood Pressure 129/78 139/77 H 120/81 H [Right Brachial artery] O2 Saturation 99 95 99 08/11/19 08/11/19 08/11/19 17:00 18:00 19:00 Temperature Heart Rate [ 90 76 92 Monitoring electrodes] Respiratory 14 17 20 Rate Blood Pressure 132/79 H 145/76 H 128/81 H [Right Brachial artery] O2 Saturation 96 99 97 Oxygen O2 Source Room air I&O (Last 24 Hrs): Intake and Output Totals x24h 05/09/20 05/10/20 05/11/20 23:59 23:59 23:59 Intake Total 3601.666 4722.833 Output Total 1825 3801 Balance 1776.666 921.833 General: Alert (per RN report) HEENT: Mucous membr. 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) Cardiovascular: Regular rate Respiratory: No respiratory distress Extremities: Other (Flaccid paralysis) - Results Results: Laboratory Results WBC 14.7 x10^3/uL (4.8-10.8) H 08/11/19 04:49 RBC 3.87 10^6/uL (4.70-6.10) L 08/11/19 04:49 Hgb 11.2 g/dL (14.0-18.0) L 08/11/19 04:49 Hct 32.9 % (42.0-52.0) L 08/11/19 04:49 MCV 85.0 fL (80.0-94.0) 08/11/19 04:49 MCH 28.9 pg (27.0-31.0) 08/11/19 04:49 MCHC 34.0 g/dL (32.0-36.0) 08/11/19 04:49 RDW 12.8 % (12.0-15.0) 08/11/19 04:49 Plt Count 355 10^3/uL (130-450) 08/11/19 04:49 MPV 10.2 fL (7.4-11.4) 08/11/19 04:49 Neut # (Auto) 11.6 10^3/uL (1.5-6.6) H 08/11/19 04:49 Lymph # (Auto) 1.9 10^3/uL (1.5-3.5) 08/11/19 04:49 [place] # (Auto) 1.1 10^3/uL (0.0-1.0) H 08/11/19 04:49 Eos # (Auto) 0.0 10^3/uL (0.0-0.7) 08/11/19 04:49 Baso # (Auto) 0.0 10^3/uL (0.0-0.1) 08/11/19 04:49 Absolute Nucleated RBC 0.00 x10^3/uL 08/11/19 04:49 Nucleated RBC % 0.0 /100WBC 08/11/19 04:49 Manual Slide Review Indicated 08/10/19 13:20 WBC Morphology (NORMAL) 08/10/19 13:20 Platelet Estimate NORMAL (130-450,000) (NORMAL) 08/10/19 13:20 Platelet Morphology NORMAL APPEARANCE (NORMAL) 08/10/19 13:20 RBC Morph Micro Appear 2+ HYPOCHROMASIA (NORMAL) 08/10/19 13:20 VBG pH 7.556 (7.31-7.41) H 08/11/19 04:49 Ionized Calcium 0.96 mmol/L (1.15-1.33) L 08/11/19 04:49 Sodium 134 mmol/L (135-145) L 08/11/19 04:49 Potassium 3.2 mmol/L (3.5-5.0) L 08/11/19 18:57 Chloride 87 mmol/L (101-111) L 08/11/19 04:49 Carbon Dioxide 38 mmol/L (21-32) H 08/11/19 04:49 Anion Gap 9.0 (6-13) 08/11/19 04:49 BUN 20 mg/dL (6-20) 08/11/19 04:49 Creatinine 0.9 mg/dL (0.6-1.2) 08/11/19 04:49 Estimated GFR (MDRD) 97 (>89) 08/11/19 04:49 Glucose 137 mg/dL (70-100) H 08/11/19 04:49 Calcium 7.2 mg/dL (8.5-10.3) L 08/11/19 04:49 Phosphorus 2.0 mg/dL (2.5-4.6) L 08/11/19 04:49 Magnesium 2.9 mg/dL (1.7-2.8) H 08/11/19 04:49 Total Bilirubin 0.8 mg/dL (0.2-1.0) 08/11/19 04:49 Direct Bilirubin 0.2 mg/dL (0.1-0.5) 08/11/19 04:49 AST 45 IU/L (10-42) H 08/11/19 04:49 ALT 22 IU/L (10-60) 08/11/19 04:49 Alkaline Phosphatase 44 IU/L (42-121) 08/11/19 04:49 CK-MB (CK-2) 4.0 ng/mL (0.6-6.3) 08/11/19 04:49 Total Protein 5.3 g/dL (6.7-8.2) L 08/11/19 04:49 Albumin 2.5 g/dL (3.2-5.5) L 08/11/19 04:49 Globulin 2.8 g/dL (2.1-4.2) 08/11/19 04:49 Albumin/Globulin Ratio 1.0 (1.0-2.2) 08/10/19 13:20 Lipase 21 U/L (22-51) L 08/10/19 13:20 Nasal Screen MRSA (PCR) NEGATIVE (NEGATIVE) 08/10/19 18:15 Ethyl Alcohol < 5.0 mg/dL 08/10/19 13:20 Coronavirus (PCR) NEGATIVE 08/10/19 16:00
[2019-08-12] MEDS: POTASSIUM CHLOR 10 MEQ/100 ML 10 MEQ/100 ML BAG IV SCH ×5 (00:49→14:55)
[2019-08-12] MEDS: SODIUM CHLORIDE FLUSH 0.9% 10 ML SYRINGE IVP SCH ×3 (01:51→17:51)
[2019-08-12] MEDS: D5NS W/20 MEQ KCL 1,000 ML IV SCH ×3 (02:59→20:13)
[2019-08-12 05:17] LABS: BASOPHILS % (AUTO) 0.3 %; EOSINOPHILS # (AUTO) 0.2 10^3/uL (0.0-0.7); EOSINOPHILS % (AUTO) 1.8 %; HGB - HEMOGLOBIN 10.2 g/dL (14.0-18.0); LYMPHOCYTES % (AUTO) 33.8 %; MEAN CORPUSCULAR HEMOGLOBIN 28.7 pg (27.0-31.0); MEAN CORPUSCULAR VOLUME 89.6 fL (80.0-94.0); MEAN PLATELET VOLUME 10.1 fL (7.4-11.4); MONOCYTES # (AUTO) 1.1 10^3/uL (0.0-1.0); MONOCYTES % (AUTO) 9.4 %; NEUTROPHILS # (AUTO) 6.3 10^3/uL (1.5-6.6); NEUTROPHILS % (AUTO) 53.3 %; PLT - PLATELET COUNT 415 10^3/uL (130-450); RED BLOOD COUNT 3.56 10^6/uL (4.70-6.10); RED CELL DISTRIBUTION WIDTH 13.4 % (12.0-15.0); VBG PH 7.442 (7.31-7.41); WHITE BLOOD COUNT 11.9 x10^3/uL (4.8-10.8)
[2019-08-12 05:32] LABS: ALBUMIN 2.3 g/dL (3.2-5.5); CALCIUM 7.5 mg/dL (8.5-10.3); CREATININE 0.8 mg/dL (0.6-1.2); MAGNESIUM 2.3 mg/dL (1.7-2.8)
[2019-08-12] MEDS ORDERED: CALCIUM GLUCONATE 1,000 MG in SODIUM CHLORIDE 0.9% 50 ML IV ONE (05:43)
[2019-08-12] MEDS ORDERED: POTASSIUM PHOSPHATE 21 MMOL in SODIUM CHLORIDE 0.9% 250 ML IV ONE (05:43)
[2019-08-12] MEDS ORDERED: POTASSIUM CHLORIDE 20 MEQ TABLET PO ONE (08:17)
[2019-08-12] MEDS ORDERED: D5NS W/20 MEQ KCL 1,000 ML IV SCH (08:19)
[2019-08-12] MEDS: cefTRIAXone 2 GM in SODIUM CHLORIDE 0.9% MINIBAG 100 ML IV SCH (08:26)
[2019-08-12] MEDS: CHOLECALCIFEROL 400 UNIT TABLET PO SCH (08:56)
[2019-08-12] MEDS: ASCORBIC ACID CHEW 500 MG TABLET PO SCH (08:56)
[2019-08-12] MEDS ORDERED: cefTRIAXone 2 GM in SODIUM CHLORIDE 0.9% MINIBAG 100 ML IV SCH (09:00)
[2019-08-12] MEDS: levETIRAcetam INJ 500 MG in SODIUM CHLORIDE 0.9% 100ML 100 ML IV SCH ×2 (09:14→20:11)
[2019-08-12] MEDS: FAMOTIDINE 20 MG/2 ML SYRINGE IVP SCH (11:30)
[2019-08-12] MEDS: NEUTRA-PHOS 250 MG TABLET PO SCH ×2 (12:20→17:50)
[2019-08-12] MEDS: polyethylene glycoL 3350 17 GM PACKET PO SCH (12:21)
[2019-08-12] MEDS: SODIUM CHLORIDE FLUSH 0.9% 10 ML SYRINGE IVP PRN (12:23)
--- NOTE | 2019-08-12 12:30 | PROVIDER PROGRESS NOTE ---
Assessment/Plan - Problem List (1) Seizure Assessment/Plan: no more seizure after inpt. pt was given IV of keppra, will witch to po on tomorrow. advise pt followup neurologist for further management. (2) Syncope ECHO is pending now. EKG reveals SR. pt did show significant dehydration and electrolytes severe abnormal. now it is replaced. continue tele, lab monitor (3) pneumonia with Suspected COVID-19 virus infection Assessment/Plan: improved. WBC is 11.9 now. pt was treated with antibiotics for bacterial p neumonia. pt is still having lower degree fever. pt was concerned for Covid 19. pt had negative at the initial test. already ordered second test by another provider, it is pending now. continue antibiotics treatment. blood culture is pending. (4) LASHAE (acute kidney injury) Assessment/Plan: improved Continue with hydration. Avoid nephrotoxins Follow BMP daily. (5) Hyponatremia Assessment/Plan: resolved. it is likely caused by dehydration. (6) Hypokalemia Assessment/Plan: close to normal and Improving, he still needs correction. (7) Hypophosphatemia Assessment/Plan: Replace. Follow daily (8) Dehydration Assessment/Plan: Improving, continue with IV hydration and lab monitor (9) Spina bifida Assessment/Plan: As per history. He is wheelchair-bound at baseline. (10) N&V (nausea and vomiting) Assessment/Plan: Resolved Will advance his diet as tolerated - Current Meds Current Meds: Current Medications Generic Name Dose Route Start Last Admin Trade Name Freq PRN Reason Stop Dose Admin Acetaminophen 650 mg 08/11/19 06:51 08/11/19 18:53 Tylenol PO 650 mg Q6HR PRN Administration Pain or Fever > 38C (100.4F) Ascorbic Acid 500 mg 08/11/19 13:00 08/12/19 08:56 Vitamin C PO 500 mg DAILY SAMI Administration Cholecalciferol 800 unit 08/11/19 13:00 08/12/19 08:56 Vitamin D3 PO 800 unit DAILY SAMI Administration Famotidine 20 mg 08/10/19 21:00 08/12/19 11:30 Pepcid IVP 20 mg BID SAMI Administration Levetiracetam 500 mg/ Sodium 105 mls @ 400 mls/hr 08/11/19 08:00 08/12/19 09:45 Chloride IV Infused BID SAMI Infusion Azithromycin 500 mg/ Sodium 250 mls @ 250 mls/hr 08/11/19 15:00 08/11/19 16:04 Chloride IV 08/12/19 15:59 Infused DAILY@1500 SAMI Infusion Ceftriaxone Sodium 2 gm/ 100 mls @ 200 mls/hr 08/11/19 14:00 08/12/19 08:58 Sodium Chloride IV Infused DAILY SAMI Infusion Potassium Chloride/Dextrose/Sod Cl 1,000 mls @ 100 mls/hr 08/12/19 08:19 08/12/19 09:46 IV 08/13/19 04:18 100 mls/hr .Q10H SAMI Administration Metoclopramide HCl 5 mg 08/11/19 00:03 08/11/19 22:25 Reglan Inj IVP 5 mg Q6HR PRN Administration Nausea / Vomiting Polyethylene Glycol 17 gm 08/12/19 12:00 08/12/19 12:21 Miralax PO 17 gm DAILY SAMI Administration Sodium Chloride 10 ml 08/10/19 15:53 08/12/19 12:23 Normal Saline Flush 0.9% IVP 10 ml PRN PRN Administration NEEDED PER PROVIDER ORDERS Sodium Chloride 10 ml 08/10/19 17:00 08/12/19 01:51 Normal Saline Flush 0.9% IVP 10 ml 0100,0900,1700 SAMI Administration Sodium Phosphate 250 mg 08/12/19 12:00 08/12/19 12:20 K-Phos Neutral PO 250 mg TIDWM SAMI Administration - Lab Result Fish Bone Diagrams: 08/12/19 04:57 08/12/19 04:57 - Additional Planning My Orders: My Active Orders 08/12/19 Blood Culture [CULTURE, BLOOD #1] [] Urgent Blood Culture [CULTURE, BLOOD #2] [] Urgent 08/12/19 08:19 D5ns W/20 Meq KCl 1,000 ml IV 100 mls/hr 08/12/19 08:24 Infection Precautions [RC] ONCE 08/12/19 12:00 Neutra-Phos [K-Phos Neutral] 250 mg PO TIDWM Subjective - Subjective Patient Reports: Feeling Better Objective Vital Signs: Vital Signs - 24 hr 08/11/19 08/11/19 08/11/19 13:00 14:00 15:00 Temperature Heart Rate [ 78 85 101 H Monitoring electrodes] Respiratory 19 19 13 Rate Blood Pressure 119/76 129/78 139/77 H [Right Brachial artery] O2 Saturation 98 99 95 08/11/19 08/11/19 08/11/19 16:00 17:00 18:00 Temperature 37.4 C Heart Rate [ 74 90 76 Monitoring electrodes] Respiratory 18 14 17 Rate Blood Pressure 120/81 H 132/79 H 145/76 H [Right Brachial artery] O2 Saturation 99 96 99 08/11/19 08/11/19 08/11/19 19:00 20:00 21:00 Temperature 99.5 C H Heart Rate [ 92 87 81 Monitoring electrodes] Respiratory 20 19 19 Rate Blood Pressure 128/81 H 130/85 H 141/76 H [Right Brachial artery] O2 Saturation 97 95 95 08/11/19 08/11/19 08/12/19 22:00 23:00 00:00 Temperature 37.4 C 37.4 C Heart Rate [ 80 80 90 Monitoring electrodes] Respiratory 16 17 19 Rate Blood Pressure 123/85 H 120/78 131/74 H [Right Brachial artery] O2 Saturation 100 94 95 08/12/19 08/12/19 08/12/19 01:00 02:00 03:00 Temperature 37.7 C H Heart Rate [ 85 88 89 Monitoring electrodes] Respiratory 20 20 16 Rate Blood Pressure 123/76 122/72 135/84 H [Right Brachial artery] O2 Saturation 95 94 94 08/12/19 08/12/19 08/12/19 04:00 05:00 06:00 Temperature 37.5 C Heart Rate [ 83 83 87 Monitoring electrodes] Respiratory 22 17 17 Rate Blood Pressure 118/77 141/94 H 130/88 H [Right Brachial artery] O2 Saturation 98 98 94 08/12/19 08/12/19 08/12/19 07:00 08:00 09:00 Temperature 99.4 C H 37.6 C H Heart Rate [ 83 85 99 Monitoring electrodes] Respiratory 17 14 17 Rate Blood Pressure 134/87 H 118/76 142/97 H [Right Brachial artery] O2 Saturation 96 98 97 08/12/19 08/12/19 08/12/19 10:00 11:00 12:00 Temperature 37.7 C H Heart Rate [ 89 92 88 Monitoring electrodes] Respiratory 17 17 21 Rate Blood Pressure 140/87 H 137/91 H 140/99 H [Right Brachial artery] O2 Saturation 95 95 94 Oxygen O2 Source Room air I&O (Last 24 Hrs): Intake and Output Totals x24h 08/10/19 08/11/19 08/12/19 23:59 23:59 23:59 Intake Total 3601.666 6282.833 2362.5 Output Total 1825 4346 3635 Balance 5258.998 5212.833 -1272.5 General: Alert HEENT: Atraumatic Neck: Supple Lymphatic: no adenopathy Neuro: Alert, Non Focal Cardiovascular: Regular rate, Normal S1, Normal S2 Respiratory: Chest non-tender, No respiratory distress Abdomen: Normal bowel sounds, Soft Extremities: Normal pulses - Results Results: Laboratory Results WBC 11.9 x10^3/uL (4.8-10.8) H 08/12/19 04:57 RBC 3.56 10^6/uL (4.70-6.10) L 08/12/19 04:57 Hgb 10.2 g/dL (14.0-18.0) L 08/12/19 04:57 Hct 31.9 % (42.0-52.0) L 08/12/19 04:57 MCV 89.6 fL (80.0-94.0) 08/12/19 04:57 MCH 28.7 pg (27.0-31.0) 08/12/19 04:57 MCHC 32.0 g/dL (32.0-36.0) 08/12/19 04:57 RDW 13.4 % (12.0-15.0) 08/12/19 04:57 Plt Count 415 10^3/uL (130-450) 08/12/19 04:57 MPV 10.1 fL (7.4-11.4) 08/12/19 04:57 Neut # (Auto) 6.3 10^3/uL (1.5-6.6) 08/12/19 04:57 Lymph # (Auto) 4.0 10^3/uL (1.5-3.5) H 08/12/19 04:57 [place] # (Auto) 1.1 10^3/uL (0.0-1.0) H 08/12/19 04:57 Eos # (Auto) 0.2 10^3/uL (0.0-0.7) 08/12/19 04:57 Baso # (Auto) 0.0 10^3/uL (0.0-0.1) 08/12/19 04:57 Absolute Nucleated RBC 0.00 x10^3/uL 08/12/19 04:57 Nucleated RBC % 0.0 /100WBC 08/12/19 04:57 Manual Slide Review Indicated 08/10/19 13:20 WBC Morphology (NORMAL) 08/10/19 13:20 Platelet Estimate NORMAL (130-450,000) (NORMAL) 08/10/19 13:20 Platelet Morphology NORMAL APPEARANCE (NORMAL) 08/10/19 13:20 RBC Morph Micro Appear 2+ HYPOCHROMASIA (NORMAL) 08/10/19 13:20 VBG pH 7.442 (7.31-7.41) H 08/12/19 04:57 Ionized Calcium 1.10 mmol/L (1.15-1.33) L 08/12/19 04:57 Sodium 138 mmol/L (135-145) 08/12/19 04:57 Potassium 3.4 mmol/L (3.5-5.0) L 08/12/19 04:57 Chloride 102 mmol/L (101-111) 08/12/19 04:57 Carbon Dioxide 30 mmol/L (21-32) 08/12/19 04:57 Anion Gap 6.0 (6-13) 08/12/19 04:57 BUN 7 mg/dL (6-20) 08/12/19 04:57 Creatinine 0.8 mg/dL (0.6-1.2) 08/12/19 04:57 Estimated GFR (MDRD) 111 (>89) 08/12/19 04:57 Glucose 109 mg/dL (70-100) H 08/12/19 04:57 Calcium 7.5 mg/dL (8.5-10.3) L 08/12/19 04:57 Phosphorus 1.0 mg/dL (2.5-4.6) L* 08/12/19 04:57 Magnesium 2.3 mg/dL (1.7-2.8) 08/12/19 04:57 Total Bilirubin 0.8 mg/dL (0.2-1.0) 08/11/19 04:49 Direct Bilirubin 0.2 mg/dL (0.1-0.5) 08/11/19 04:49 AST 45 IU/L (10-42) H 08/11/19 04:49 ALT 22 IU/L (10-60) 08/11/19 04:49 Alkaline Phosphatase 44 IU/L (42-121) 08/11/19 04:49 CK-MB (CK-2) 4.0 ng/mL (0.6-6.3) 08/11/19 04:49 Total Protein 5.3 g/dL (6.7-8.2) L 08/11/19 04:49 Albumin 2.3 g/dL (3.2-5.5) L 08/12/19 04:57 Globulin 2.8 g/dL (2.1-4.2) 08/11/19 04:49 Albumin/Globulin Ratio 1.0 (1.0-2.2) 08/10/19 13:20 Lipase 21 U/L (22-51) L 08/10/19 13:20 Nasal Screen MRSA (PCR) NEGATIVE (NEGATIVE) 08/10/19 18:15 Ethyl Alcohol < 5.0 mg/dL 08/10/19 13:20 Coronavirus (PCR) NEGATIVE 08/10/19 16:00 ABX Reporting Has patient been on IV antibiotics over the past 48 hours?: Yes Current Medications - Current Medications Current Medications: Active Medications Acetaminophen (Tylenol) 650 mg PO Q6HR PRN PRN Reason: Pain or Fever > 38C (100.4F) Last Admin: 08/11/19 18:53 Dose: 650 mg Ascorbic Acid (Vitamin C) 500 mg PO DAILY [facility] Last Admin: 08/12/19 08:56 Dose: 500 mg Cholecalciferol (Vitamin D3) 800 unit PO DAILY [facility] Last Admin: 08/12/19 08:56 Dose: 800 unit Famotidine (Pepcid) 20 mg IVP BID [facility] Last Admin: 08/12/19 11:30 Dose: 20 mg Levetiracetam 500 mg/ Sodium (Chloride) 105 mls @ 400 mls/hr IV BID [facility] Last Infusion: 08/12/19 09:45 Dose: Infused Ceftriaxone Sodium 2 gm/ (Sodium Chloride) 100 mls @ 200 mls/hr IV DAILY [facility] Last Infusion: 08/12/19 08:58 Dose: Infused Potassium Chloride/Dextrose/Sod Cl () 1,000 mls @ 83.3 mls/hr IV .Q12H1M [facility] Stop: 08/13/19 16:08 Lorazepam (Ativan Inj (Vial)) 2 mg IVP Q4H PRN PRN Reason: Seizure Metoclopramide HCl (Reglan Inj) 5 mg IVP Q6HR PRN PRN Reason: Nausea / Vomiting Last Admin: 08/11/19 22:25 Dose: 5 mg Ondansetron HCl (Zofran Inj) 4 mg IVP Q6HR PRN PRN Reason: Nausea / Vomiting Polyethylene Glycol (Miralax) 17 gm PO DAILY [facility] Last Admin: 08/12/19 12:21 Dose: 17 gm Prochlorperazine Edisylate (Compazine Inj) 10 mg IVP Q6HR PRN PRN Reason: Nausea / Vomiting Sodium Chloride (Normal Saline Flush 0.9%) 10 ml IVP PRN PRN PRN Reason: NEEDED PER PROVIDER ORDERS Last Admin: 08/12/19 12:23 Dose: 10 ml Sodium Chloride (Normal Saline Flush 0.9%) 10 ml IVP 0100,0900,1700 [facility] Last Admin: 08/12/19 12:41 Dose: Not Given Sodium Phosphate (K-Phos Neutral) 250 mg PO TIDWM [facility] Last Admin: 08/12/19 12:20 Dose: 250 mg No Known Home Medications 08/10/19
[2019-08-12] MEDS: AZITHROMYCIN INJ 500 MG in SODIUM CHLORIDE 0.9% 250 ML IV SCH (14:56)
[2019-08-12] MEDS: FAMOTIDINE 20 MG TABLET PO SCH (20:13)
[2019-08-12 20:23] LABS: ALBUMIN 2.6 g/dL (3.2-5.5); ALBUMIN/GLOBULIN RATIO 0.8 (1.0-2.2); BILIRUBIN,TOTAL 0.5 mg/dL (0.2-1.0); CALCIUM 7.9 mg/dL (8.5-10.3); CREATININE 0.8 mg/dL (0.6-1.2); TOTAL PROTEIN 5.9 g/dL (6.7-8.2)
[2019-08-12] MEDS: METOCLOPRAMIDE 10 MG/2 ML VIAL IVP PRN (22:03)
[2019-08-13] MEDS: ACETAMINOPHEN 325 MG TABLET PO PRN (00:01)
[2019-08-13] MEDS: SODIUM CHLORIDE FLUSH 0.9% 10 ML SYRINGE IVP SCH ×3 (00:02→20:56)
[2019-08-13 05:04] LABS: BASOPHILS # (AUTO) 0.1 10^3/uL (0.0-0.1); BASOPHILS % (AUTO) 0.6 %; EOSINOPHILS # (AUTO) 0.5 10^3/uL (0.0-0.7); EOSINOPHILS % (AUTO) 3.9 %; HGB - HEMOGLOBIN 11.8 g/dL (14.0-18.0); LYMPHOCYTES # (AUTO) 4.5 10^3/uL (1.5-3.5); MEAN CORPUSCULAR HEMOGLOBIN 29.4 pg (27.0-31.0); MEAN CORPUSCULAR HGB CONC 32.3 g/dL (32.0-36.0); MEAN CORPUSCULAR VOLUME 90.8 fL (80.0-94.0); MEAN PLATELET VOLUME 9.9 fL (7.4-11.4); MONOCYTES # (AUTO) 1.3 10^3/uL (0.0-1.0); MONOCYTES % (AUTO) 9.2 %; NEUTROPHILS # (AUTO) 6.8 10^3/uL (1.5-6.6); NEUTROPHILS % (AUTO) 49.7 %; PLT - PLATELET COUNT 508 10^3/uL (130-450); RED BLOOD COUNT 4.02 10^6/uL (4.70-6.10); RED CELL DISTRIBUTION WIDTH 13.9 % (12.0-15.0); WHITE BLOOD COUNT 13.7 x10^3/uL (4.8-10.8)
[2019-08-13 05:06] LABS: VBG PH 7.409 (7.31-7.41)
[2019-08-13 05:15] LABS: ALBUMIN 2.8 g/dL (3.2-5.5); CALCIUM 8.2 mg/dL (8.5-10.3); CREATININE 0.7 mg/dL (0.6-1.2); PHOSPHORUS 3.2 mg/dL (2.5-4.6)
[2019-08-13] MEDS: CHOLECALCIFEROL 400 UNIT TABLET PO SCH (08:44)
[2019-08-13] MEDS: cefTRIAXone 2 GM in SODIUM CHLORIDE 0.9% MINIBAG 100 ML IV SCH (08:45)
[2019-08-13] MEDS: ASCORBIC ACID CHEW 500 MG TABLET PO SCH (08:45)
[2019-08-13] MEDS: NEUTRA-PHOS 250 MG TABLET PO SCH ×2 (08:45→12:59)
[2019-08-13] MEDS: polyethylene glycoL 3350 17 GM PACKET PO SCH (08:52)
[2019-08-13] MEDS: FAMOTIDINE 20 MG TABLET PO SCH ×2 (08:57→20:55)
--- NOTE | 2019-08-13 09:16 | XRAY Report ---
Reason: sob Procedure Date: 08/13/2019 Accession Number: [id number] / [id number] Procedure: XR - Chest 1 View X-Ray CPT Code: 20856 Final Report FULL RESULT: EXAM: CHEST RADIOGRAPHY EXAM DATE: 08/13/2019 08:49 AM. CLINICAL HISTORY: Shortness of breath. COMPARISON: CT scan from 08/10/2019. TECHNIQUE: 1 view. FINDINGS: Lungs/Pleura: No focal opacities evident. No pleural effusion. No pneumothorax. Groundglass opacity noted on CT scan not well delineated on plain film. Mediastinum: Within exam limitations, the cardiomediastinal contour is normal. Other: Portions of LOOKBACK COORDINATOR shunt noted coursing about the left chest. IMPRESSION: No gross infiltrates present. Groundglass opacity noted on CT scan not well seen on plain film exam. RADIA
[2019-08-13] MEDS: LACTATED RINGERS 1,000 ML IV SCH ×2 (09:57→20:54)
[2019-08-13] MEDS: METOPROLOL SUCCINATE 25 MG TABLET PO SCH (10:00)
[2019-08-13] MEDS: ASPIRIN 325 MG TABLET PO SCH (10:00)
[2019-08-13] MEDS: ENOXAPARIN 80 MG/0.8 ML SYRINGE SUBQ SCH ×2 (10:02→20:55)
--- NOTE | 2019-08-13 14:31 | PROVIDER PROGRESS NOTE ---
Assessment/Plan - Problem List (1) NSTEMI (non-ST elevated myocardial infarction) Assessment/Plan: 08/12 pt denies chest pain, but last night pt was reported to have twice non- suspended V-T, long one is 11 beats of V-T. Troponin is order in the morning which show significant elevated to 7700. EKG in III show ST depressed, it indicate pt has NSTEM. order serial troponin, continue tele order PRN nitro and Morphine order aspirin and lovenox, lipitor, and metoprolol order ECHO, will followup and call optoelectronic technician or if his troponin or clinic become worsening continue tele and vital monitor continue in ICU (2) Seizure Assessment/Plan: 08/12 pt has no more seizure. pt's sodium and potassium are normal. Called Dr. Hines neurologist at [facility]. she believe pt's seizure was likely caused by severe hyponatremia at 119. she advise pt can be d/c of Keppra now. continue neuro check 08/11 no more seizure after inpt. pt was given IV of keppra, will witch to po on tomorrow. advise pt followup neurologist for further management. (3) Syncope 08/12 no more syncope. ECHO reveals unremarkable, EKG is as above ST depressed change. continue tele. it is likely caused by severe pt's electrolytes disturbance. ECHO is pending now. EKG reveals SR. pt did show significant dehydration and electrolytes severe abnormal. now it is replaced. continue tele, lab monitor (4) pneumonia with Suspected COVID-19 virus infection Assessment/Plan: 08/12 Covid 19 second test is negative, continue antibiotics, continue IVF 08/11 improved. WBC is 11.9 now. pt was treated with antibiotics for bacterial pneumonia. pt is still having lower degree fever. pt was concerned for Covid 19. pt had negative at the initial test. already ordered second test by another provider, it is pending now. continue antibiotics treatment. blood culture is pending. (5) LASHAE (acute kidney injury) Assessment/Plan: 08/12 resolved improved Continue with hydration. Avoid nephrotoxins Follow BMP daily. (6) Hyponatremia Assessment/Plan: resolved. it is likely caused by dehydration. (7) Hypokalemia Assessment/Plan: 08/12 resolved close to normal and Improving, he still needs correction. (8) Hypophosphatemia Assessment/Plan: 08/12 resolved Replace. Follow daily (9) Dehydration Assessment/Plan: resolved Improving, continue with IV hydration and lab monitor (10) Spina bifida Assessment/Plan: As per history. He is wheelchair-bound at baseline. (11) N&V (nausea and vomiting) Assessment/Plan: Resolved Will advance his diet as tolerated - Current Meds Current Meds: Current Medications Generic Name Dose Route Start Last Admin Trade Name Freq PRN Reason Stop Dose Admin Acetaminophen 650 mg 08/11/19 06:51 08/13/19 00:01 Tylenol PO 650 mg Q6HR PRN Administration Pain or Fever > 38C (100.4F) Ascorbic Acid 500 mg 08/11/19 13:00 08/13/19 08:45 Vitamin C PO 500 mg DAILY SAMI Administration Aspirin 325 mg 08/13/19 10:00 08/13/19 10:00 Debbie PO 325 mg DAILYWM SAMI Administration Cholecalciferol 800 unit 08/11/19 13:00 08/13/19 08:44 Vitamin D3 PO 800 unit DAILY SAMI Administration Enoxaparin Sodium 80 mg 08/13/19 10:00 08/13/19 10:02 Lovenox SUBQ 80 mg BID SAMI Administration Famotidine 20 mg 08/12/19 21:00 08/13/19 08:57 Pepcid PO 20 mg BID SAMI Administration Ceftriaxone Sodium 2 gm/ 100 mls @ 200 mls/hr 08/11/19 14:00 08/13/19 09:44 Sodium Chloride IV Infused DAILY SAMI Infusion Lactated Ringer's 1,000 mls @ 83.333 mls/hr 08/13/19 09:00 08/13/19 09:57 Lr IV 83.333 mls/hr .Q12H SAMI Administration Metoclopramide HCl 5 mg 08/11/19 00:03 08/12/19 22:03 Reglan Inj IVP 5 mg Q6HR PRN Administration Nausea / Vomiting Metoprolol Succinate 25 mg 08/13/19 10:00 08/13/19 10:00 Toprol Xl PO 25 mg DAILY SAMI Administration Polyethylene Glycol 17 gm 08/12/19 12:00 08/13/19 08:52 Miralax PO Not Given DAILY SAMI Sodium Chloride 10 ml 08/10/19 15:53 08/12/19 12:23 Normal Saline Flush 0.9% IVP 10 ml PRN PRN Administration NEEDED PER PROVIDER ORDERS Sodium Chloride 10 ml 08/10/19 17:00 08/13/19 08:52 Normal Saline Flush 0.9% IVP 10 ml 0100,0900,1700 SAMI Administration Sodium Phosphate 250 mg 08/12/19 12:00 08/13/19 12:59 K-Phos Neutral PO 250 mg TIDWM SAMI Administration - Lab Result Fish Bone Diagrams: 08/13/19 04:30 08/13/19 04:30 - Additional Planning My Orders: My Active Orders 08/12/19 21:00 Famotidine [Pepcid] 20 mg PO BID 08/13/19 08:06 Echo Transthoracic Complete [ECHO] Routine 08/13/19 09:00 Lactated Ringers [Lr] 1,000 ml IV 83.333 mls/hr 08/13/19 10:00 Aspirin [Debbie] 325 mg PO DAILYWM Enoxaparin [Lovenox] 80 mg SUBQ BID Metoprolol Succinate [Toprol Xl] 25 mg PO DAILY 08/13/19 14:05 TROPONIN I HIGH SENSITIVITY [IAI] Timed 08/13/19 20:00 TROPONIN I HIGH SENSITIVITY [IAI] Timed 08/13/19 21:00 Atorvastatin [Lipitor] 40 mg PO QPM Subjective - Subjective Patient Reports: Feeling Better Objective Vital Signs: Vital Signs - 24 hr 08/12/19 08/12/19 08/12/19 15:00 16:00 17:00 Temperature 37.5 C Heart Rate [ 97 94 91 Monitoring electrodes] Respiratory 19 13 28 H Rate Blood Pressure 145/89 H 115/96 H 126/77 [Left Brachial artery] O2 Saturation 99 96 97 08/12/19 08/12/19 08/12/19 18:00 19:00 20:00 Temperature 37.5 C Heart Rate [ 85 91 79 Monitoring electrodes] Respiratory 22 22 20 Rate Blood Pressure 134/80 H 128/78 121/85 H [Left Brachial artery] O2 Saturation 99 99 99 08/12/19 08/12/19 08/12/19 21:00 22:00 23:00 Temperature Heart Rate [ 78 93 80 Monitoring electrodes] Respiratory 23 20 21 Rate Blood Pressure 124/81 H 128/93 H 136/79 H [Left Brachial artery] O2 Saturation 98 98 98 08/13/19 08/13/19 08/13/19 00:00 01:00 02:00 Temperature 37.9 C H 37.2 C Heart Rate [ 82 74 64 Monitoring electrodes] Respiratory 22 23 20 Rate Blood Pressure 134/91 H 120/80 117/76 [Left Brachial artery] O2 Saturation 97 98 97 08/13/19 08/13/19 08/13/19 03:00 04:00 05:00 Temperature 36.9 C Heart Rate [ 63 58 L 73 Monitoring electrodes] Respiratory 18 21 17 Rate Blood Pressure 98/73 118/78 150/96 H [Left Brachial artery] O2 Saturation 98 98 99 08/13/19 08/13/19 08/13/19 06:00 07:00 08:00 Temperature 36.6 C Heart Rate [ 64 64 101 H Monitoring electrodes] Respiratory 23 22 19 Rate Blood Pressure 139/85 H 129/64 122/86 H [Left Brachial artery] O2 Saturation 99 95 96 08/13/19 08/13/19 08/13/19 09:00 10:00 11:00 Temperature Heart Rate [ 96 100 84 Monitoring electrodes] Respiratory 17 14 20 Rate Blood Pressure 136/98 H 126/92 H 125/92 H [Left Brachial artery] O2 Saturation 97 97 08/13/19 08/13/19 08/13/19 12:00 13:00 14:00 Temperature 37.4 C Heart Rate [ 85 85 88 Monitoring electrodes] Respiratory 14 19 18 Rate Blood Pressure 131/87 H 129/65 122/88 H [Left Brachial artery] O2 Saturation 97 98 95 Oxygen O2 Source Room air I&O (Last 24 Hrs): Intake and Output Totals x24h 08/11/19 08/12/19 08/13/19 23:59 23:59 23:59 Intake Total 6282.833 8134.096 1036 Output Total 4346 7708 2910 Balance 7276.833 247.742 -8846 General: Alert, No acute distress HEENT: Atraumatic Neck: Supple Lymphatic: no adenopathy Neuro: Alert, Non Focal Cardiovascular: Regular rate, Normal S1, Normal S2 Respiratory: Chest non-tender, No respiratory distress, Breath sounds nml Abdomen: Normal bowel sounds, Soft Extremities: Normal pulses - Results Results: Laboratory Results WBC 13.7 x10^3/uL (4.8-10.8) H 08/13/19 04:30 RBC 4.02 10^6/uL (4.70-6.10) L 08/13/19 04:30 Hgb 11.8 g/dL (14.0-18.0) L 08/13/19 04:30 Hct 36.5 % (42.0-52.0) L 08/13/19 04:30 MCV 90.8 fL (80.0-94.0) 08/13/19 04:30 MCH 29.4 pg (27.0-31.0) 08/13/19 04:30 MCHC 32.3 g/dL (32.0-36.0) 08/13/19 04:30 RDW 13.9 % (12.0-15.0) 08/13/19 04:30 Plt Count 508 10^3/uL (130-450) H 08/13/19 04:30 MPV 9.9 fL (7.4-11.4) 08/13/19 04:30 Neut # (Auto) 6.8 10^3/uL (1.5-6.6) H 08/13/19 04:30 Lymph # (Auto) 4.5 10^3/uL (1.5-3.5) H 08/13/19 04:30 [place] # (Auto) 1.3 10^3/uL (0.0-1.0) H 08/13/19 04:30 Eos # (Auto) 0.5 10^3/uL (0.0-0.7) 08/13/19 04:30 Baso # (Auto) 0.1 10^3/uL (0.0-0.1) 08/13/19 04:30 Absolute Nucleated RBC 0.00 x10^3/uL 08/13/19 04:30 Nucleated RBC % 0.0 /100WBC 08/13/19 04:30 Manual Slide Review Indicated 08/10/19 13: WBC Morphology (NORMAL) 08/10/19 13: Platelet Estimate NORMAL (130-450,000) (NORMAL) 08/10/19 13:20 Platelet Morphology NORMAL APPEARANCE (NORMAL) 08/10/19: RBC Morph Micro Appear 2+ HYPOCHROMASIA (NORMAL) 08/10/19 13: VBG pH 7.409 (7.31-7.41) 08/13/19 04:30 Ionized Calcium 1.13 mmol/L (1.15-1.33) L 08/13/19 04:30 Sodium 136 mmol/L (135-145) 08/13/19 04:30 Potassium 4.3 mmol/L (3.5-5.0) 08/13/19 04:30 Chloride 103 mmol/L (101-111) 08/13/19 04:30 Carbon Dioxide 28 mmol/L (21-32) 08/13/19 04:30 Anion Gap 5.0 (6-13) L 08/13/19 04:30 BUN 6 mg/dL (6-20) 08/13/19 04:30 Creatinine 0.7 mg/dL (0.6-1.2) 08/13/19 04:30 Estimated GFR (MDRD) 129 (>89) 08/13/19 04:30 Glucose 96 mg/dL (70-100) 08/13/19 04:30 Calcium 8.2 mg/dL (8.5-10.3) L 08/13/19 04:30 Phosphorus 3.2 mg/dL (2.5-4.6) 08/13/19 04:30 Magnesium 2.0 mg/dL (1.7-2.8) 08/13/19 04:30 Total Bilirubin 0.5 mg/dL (0.2-1.0) 08/12/19 20:00 Direct Bilirubin 0.2 mg/dL (0.1-0.5) 08/11/19 04:49 AST 141 IU/L (10-42) H 08/12/19 20:00 ALT 43 IU/L (10-60) 08/12/19 20:00 Alkaline Phosphatase 49 IU/L (42-121) 08/12/19 20:00 CK-MB (CK-2) 4.0 ng/mL (0.6-6.3) 08/11/19 04:49 Troponin I High Sens 7769.1 ng/L (2.3-19.7) H* 08/13/19 08:22 Total Protein 5.9 g/dL (6.7-8.2) L 08/12/19 20:00 Albumin 2.8 g/dL (3.2-5.5) L 08/13/19 04:30 Globulin 3.3 g/dL (2.1-4.2) 08/12/19 20:00 Albumin/Globulin Ratio 0.8 (1.0-2.2) L 08/12/19 20:00 Lipase 21 U/L (22-51) L 08/10/19 13:20 Nasal Screen MRSA (PCR) NEGATIVE (NEGATIVE) 08/10/19 18:15 Ethyl Alcohol < 5.0 mg/dL 08/10/19 13:20 Coronavirus (PCR) NEGATIVE 08/11/19 17:30 ABX Reporting Has patient been on IV antibiotics over the past 48 hours?: Yes Current Medications - Current Medications Current Medications: Active Medications Acetaminophen (Tylenol) 650 mg PO Q6HR PRN PRN Reason: Pain or Fever > 38C (100.4F) Last Admin: 08/13/19 00:01 Dose: 650 mg Ascorbic Acid (Vitamin C) 500 mg PO DAILY [facility] Last Admin: 08/13/19 08:45 Dose: 500 mg Aspirin (Debbie) 325 mg PO DAILYWM [facility] Last Admin: 08/13/19 10:00 Dose: 325 mg Atorvastatin Calcium (Lipitor) 40 mg PO QPM [facility] Cholecalciferol (Vitamin D3) 800 unit PO DAILY [facility] Last Admin: 08/13/19 08:44 Dose: 800 unit Enoxaparin Sodium (Lovenox) 80 mg SUBQ BID [facility] Last Admin: 08/13/19 10:02 Dose: 80 mg Famotidine (Pepcid) 20 mg PO BID [facility] Last Admin: 08/13/19 08:57 Dose: 20 mg Ceftriaxone Sodium 2 gm/ (Sodium Chloride) 100 mls @ 200 mls/hr IV DAILY [facility] Stop: 08/14/19 09:29 Last Infusion: 08/13/19 09:44 Dose: Infused Lactated Ringer's (Lr) 1,000 mls @ 83.333 mls/hr IV .Q12H [facility] Last Admin: 08/13/19 09:57 Dose: 83.333 mls/hr Lorazepam (Ativan Inj (Vial)) 2 mg IVP Q4H PRN PRN Reason: Seizure Metoclopramide HCl (Reglan Inj) 5 mg IVP Q6HR PRN PRN Reason: Nausea / Vomiting Last Admin: 08/12/19 22:03 Dose: 5 mg Metoprolol Succinate (Toprol Xl) 25 mg PO DAILY [facility] Last Admin: 08/13/19 10:00 Dose: 25 mg Morphine Sulfate (Morphine (Carpuject)) 2 mg IVP Q2HR PRN PRN Reason: PAIN Nitroglycerin (Nitrostat) 0.4 mg SL Q5MIN PRN PRN Reason: Chest Pain Ondansetron HCl (Zofran Inj) 4 mg IVP Q6HR PRN PRN Reason: Nausea / Vomiting Polyethylene Glycol (Miralax) 17 gm PO DAILY [facility] Last Admin: 08/13/19 08:52 Dose: Not Given Prochlorperazine Edisylate (Compazine Inj) 10 mg IVP Q6HR PRN PRN Reason: Nausea / Vomiting Sodium Chloride (Normal Saline Flush 0.9%) 10 ml IVP PRN PRN PRN Reason: NEEDED PER PROVIDER ORDERS Last Admin: 08/12/19 12:23 Dose: 10 ml Sodium Chloride (Normal Saline Flush 0.9%) 10 ml IVP 0100,0900,1700 [facility] Last Admin: 08/13/19 08:52 Dose: 10 ml No Known Home Medications 08/10/19
[2019-08-13] MEDS ORDERED: NITROGLYCERIN SL 0.4 MG TABLET SL PRN (14:40)
[2019-08-13] MEDS ORDERED: MORPHINE 2 MG/ML CARPUJECT IVP PRN (14:40)
[2019-08-13] MEDS ORDERED: ATORVASTATIN 40 MG TABLET PO SCH (21:00)
[2019-08-14] MEDS: SODIUM CHLORIDE FLUSH 0.9% 10 ML SYRINGE IVP SCH ×3 (04:33→17:21)
[2019-08-14 05:06] LABS: BASOPHILS % (AUTO) 0.6 %; EOSINOPHILS % (AUTO) 4.1 %; HGB - HEMOGLOBIN 11.7 g/dL (14.0-18.0); LYMPHOCYTES % (AUTO) 36.8 %; MEAN CORPUSCULAR HEMOGLOBIN 28.3 pg (27.0-31.0); MEAN CORPUSCULAR HGB CONC 32.3 g/dL (32.0-36.0); MEAN CORPUSCULAR VOLUME 87.7 fL (80.0-94.0); MEAN PLATELET VOLUME 9.6 fL (7.4-11.4); MONOCYTES % (AUTO) 8.2 %; NEUTROPHILS % (AUTO) 46.7 %; PLT - PLATELET COUNT 581 10^3/uL (130-450); RED BLOOD COUNT 4.13 10^6/uL (4.70-6.10); WHITE BLOOD COUNT 15.4 x10^3/uL (4.8-10.8)
[2019-08-14 05:19] LABS: ABNORMAL LYMPHS % (MANUAL) 0 %
[2019-08-14 05:20] LABS: CALCIUM 8.3 mg/dL (8.5-10.3); CREATININE 0.7 mg/dL (0.6-1.2); MAGNESIUM 1.9 mg/dL (1.7-2.8); PHOSPHORUS 3.3 mg/dL (2.5-4.6)
[2019-08-14 05:38] LABS: BAND NEUTROPHILS % (MANUAL) 6 %; DIFFERENTIAL COMMENT MANUAL DIFFERENTIAL; EOSINOPHILS # (MANUAL) 0.3 10^3/uL (0-0.7); LYMPHOCYTES # (MANUAL) 2.9 10^3/uL (1.5-3.5); LYMPHOCYTES % (MANUAL) 19 %; METAMYELOCYTES % (MANUAL) 1 %; MONOCYTES # (MANUAL) 0.6 10^3/uL (0.0-1.0); MYELOCYTES % (MANUAL) 1 %; PLATELET ESTIMATE, MANUAL INCREASED (>450,000) (NORMAL); RBC MORPHOLOGY (MULTIPLE) NORMAL APPEARANCE (NORMAL)
[2019-08-14] MEDS ORDERED: SODIUM CHLORIDE 0.9% 500 ML IV ONE (08:11)
[2019-08-14] MEDS: cefTRIAXone 2 GM in SODIUM CHLORIDE 0.9% MINIBAG 100 ML IV SCH (08:40)
[2019-08-14] MEDS: ASPIRIN 325 MG TABLET PO SCH (08:42)
[2019-08-14] MEDS: METOPROLOL SUCCINATE 25 MG TABLET PO SCH (08:43)
[2019-08-14] MEDS: ASCORBIC ACID CHEW 500 MG TABLET PO SCH (08:43)
[2019-08-14] MEDS: ENOXAPARIN 80 MG/0.8 ML SYRINGE SUBQ SCH (08:44)
[2019-08-14] MEDS: CHOLECALCIFEROL 400 UNIT TABLET PO SCH (08:44)
[2019-08-14] MEDS: FAMOTIDINE 20 MG TABLET PO SCH (08:45)
[2019-08-14] MEDS: polyethylene glycoL 3350 17 GM PACKET PO SCH (08:45)
[2019-08-14] MEDS: SODIUM CHLORIDE 0.9% 1,000 ML IV SCH ×2 (12:30→18:58)
[2019-08-14 14:47] LABS: BASOPHILS # (AUTO) 0.1 10^3/uL (0.0-0.1); BASOPHILS % (AUTO) 0.5 %; EOSINOPHILS # (AUTO) 0.5 10^3/uL (0.0-0.7); EOSINOPHILS % (AUTO) 3.2 %; HGB - HEMOGLOBIN 12.3 g/dL (14.0-18.0); LYMPHOCYTES # (AUTO) 3.6 10^3/uL (1.5-3.5); LYMPHOCYTES % (AUTO) 24.5 %; MEAN CORPUSCULAR HEMOGLOBIN 29.6 pg (27.0-31.0); MEAN CORPUSCULAR HGB CONC 33.1 g/dL (32.0-36.0); MEAN CORPUSCULAR VOLUME 89.4 fL (80.0-94.0); MONOCYTES # (AUTO) 1.7 10^3/uL (0.0-1.0); MONOCYTES % (AUTO) 11.7 %; NEUTROPHILS # (AUTO) 8.4 10^3/uL (1.5-6.6); NEUTROPHILS % (AUTO) 56.7 %; PLT - PLATELET COUNT 596 10^3/uL (130-450); RED BLOOD COUNT 4.16 10^6/uL (4.70-6.10); RED CELL DISTRIBUTION WIDTH 14.1 % (12.0-15.0); WHITE BLOOD COUNT 14.8 x10^3/uL (4.8-10.8)
--- NOTE | 2019-08-14 15:55 | DISCHARGE SUMMARY ---
"Discharge Summary Admit Date: 08/10/19 Discharge Date: 08/14/19 Discharging Provider: Justice Orellana Primary Care Provider: Sarabjit Garcia Condition at Discharge: Stable Discharge Facility Name: [facility] Admission Diagnoses: (1) Seizure (2) Syncope (3) pneumonia with Suspected COVID-19 virus infection (4) LASHAE (acute kidney injury) (5) Hyponatremia (6) Hypokalemia (7) Hypophosphatemia (8) Dehydration (9) Spina bifida (10) N&V (nausea and vomiting) Discharge Diagnoses with Status of Each Condition: (1) NSTEMI (non-ST elevated myocardial infarction) pt Patient having no chest pain, but the patient has significantly elevated troponin at 7900, patient EKG did have mild ST depression in III, but patient's ECHO is total normal. Patient was given aspirin 325 mg, Lovenox, The patient continue to have elevated troponin. Call [facility] forest nursery supervisor. forest nursery supervisor accept the patient for advanced care, they might be do the stress test for the patient. (2)tachycardia Patient today Develop since tachycardia, rate 100-110 around.He have a baseline HR is about 70/75. Unknown etiology, called hospitalist at [facility], he accepted patient for the high level of the care (3)Rhabdomyolysis Patient have CK over 8000 today, patient had a fell in the home when he had a seizure. Patient was given intravenous IV flow. (4) Seizure Patient has no seizure in hospital, consulted with [facility] neurologist for patient's seizure. neurologist believe patient can be DC'd her seizure medication Maxwell, neurology believed the seizure was caused by patient hyponatremia, patient hyponatremic was resolved. Patient has no history of the seizure (5) Syncope Echo show total normal, patient present significant dehydration, electrolyte disturbance in the admission (6) pneumonia with Suspected COVID-19 virus infection Patient show pneumonia in the CT of the chest patient, Covid 19 test twice was negative, patient have low degree fever in the admission, and elevated WBC, patient was treated antibiotics, IVF, patient blood culture show negative for bacterial uremia. (7) LASHAE (acute kidney injury) resolved (8) Hyponatremia resolved (9) Hypokalemia resolved (10) Hypophosphatemia resolved 11) Dehydration resolved (12) Spina bifida As history. He is wheelchair-bound at baseline. (13) N&V (nausea and vomiting) resolved - HPI History of Present Illness: refer from Dr. Moya's HPI on 08/10/2019 pt had been ill for the past week with nausea and episodic vomiting and poor intake and also a cough with some productive sputum and a sore throat. He denies fevers but has had feeling of chills and also general weakness. He was sitting in the toilet and finished going to the bathroom and then was starting to transfer from the toilet to his wheelchair and felt generally weak lightheaded and felt that he passed out. He remembered starting to fall but not the fall itself he apparently struck the left side of his face and has an abrasion and some swelling lateral periorbital and forehead. He states he also had some pain in the anterior chest. He denied neck pain or belly pain. His roommate I believe called EMS and he was brought here for evaluation. - CONSULTS | PROCEDURES Consultations: Dr. Hines, neurologist, at [facility] Procedures: no - HOSPITAL COURSE Hospital Course: Patient also admitted a fall, syncope fell and seizure. Patient have CAT scan of the chest, head and the neck which are unremarkable.Patient was found to have significantly low sodium, potassium, and significantly dehydration. Patient was treated with Keppra for seizure, patient have no more seizure in the hospital. Patient's electrolytes was replaced in the hospital.Patient develop twice un- suspended V. tach in the hospital. Patient denies any chest pain or discomfort or palpation. Patient's troponin of was over 7900, patient's EKG had ST pressure in the leads III. Patient echo is normal.Patient also develop tachycardia, patient CK test is significantly elevated over 8000. Because patient developed acute cardiac distress, we called [facility] for the high level care, patient was accepted by hospitalist and forest nursery supervisor for high level of care.The detailed hospital course is as below. (1) NSTEMI (non-ST elevated myocardial infarction) pt Patient having no chest pain, but the patient has significantly elevated troponin at 7900, patient EKG did have mild ST depression in III, but patient's ECHO is total normal. Patient was given aspirin 325 mg, Lovenox, The patient continue to have elevated troponin. Call [facility] forest nursery supervisor. forest nursery supervisor accept the patient for advanced care, they might be do the stress test for the patient. (2)tachycardia Patient today Develop since tachycardia, rate 100-110 around.He have a baseline HR is about 70/75. Unknown etiology, called hospitalist at [facility], he accepted patient for the high level of the care (3)Rhabdomyolysis Patient have CK over 8000 today, patient had a fell in the home when he had a seizure. Patient was given intravenous IV flow. (4) Seizure Patient has no seizure in hospital, consulted with [facility] neurologist for patient's seizure. neurologist believe patient can be DC'd her seizure medication Maxwell, neurology believed the seizure was caused by patient hyponatremia, patient hyponatremic was resolved. Patient has no history of the seizure (5) Syncope Echo show total normal, patient present significant dehydration, electrolyte disturbance in the admission (6) pneumonia with Suspected COVID-19 virus infection Patient show pneumonia in the CT of the chest patient, Covid 19 test twice was negative, patient have low degree fever in the admission, and elevated WBC, patient was treated antibiotics, IVF, patient blood culture show negative for bacterial uremia. (7) LASHAE (acute kidney injury) resolved (8) Hyponatremia resolved (9) Hypokalemia resolved (10) Hypophosphatemia resolved 11) Dehydration resolved (12) Spina bifida As history. He is wheelchair-bound at baseline. (13) N&V (nausea and vomiting) resolved - ALLERGIES Allergies/Adverse Reactions: Allergies Allergy/AdvReac Type Severity Reaction Status Date / Time No Known Drug Allergies Allergy Verified 08/10/19 12:40 - MEDICATIONS Home Medications: Ambulatory Orders Medication Instructions Recorded Confirmed No Known Home Medications 08/10/19 08/10/19 - PHYSICAL EXAM AT DISCHARGE General Appearance: positive: No acute distress, Alert. negative: Lethargic Eyes Bilateral: positive: Normal inspection, PERRL, No lid inflammation ENT: positive: ENT inspection nml, Pharynx nml, No signs of dehydration. negati ve: Purulent nasal drainage Neck: positive: Nml inspection, Thyroid nml, No JVD, Trachea midline. negative: Thyromegaly, Stiff neck, Tracheal deviation Respiratory: positive: Chest non-tender, No respiratory distress, Breath sounds nml. negative: Wheezes Cardiovascular: positive: Regular rate & rhythm, No murmur, No gallop, Tachycardia. negative: Irregularly irregular, Bradycardia, Systolic murmur, Diastolic murmur Peripheral Pulses: positive: 2+ Abdomen: positive: Non-tender, No organomegaly, Nml bowel sounds, No distention. negative: Tenderness, Guarding, Rebound Skin: positive: Color nml, No rash, Warm, Dry. negative: Cyanosis, Diaphoresis, Pallor, Skin rash Extremities: positive: Non-tender, Nml appearance. negative: Calf tenderness, Nahomi's sign/cords Neurologic/Psychiatric: positive: Sensation nml, Mood/affect nml. negative: Weakness, Sensory loss, Facial droop, Slurred/abnml speech - LABS Result Diagrams: 08/14/19 14:40 08/14/19 04:20 - FOLLOW UP Follow Up: followup [facility] for high level of care - TIME SPENT Time Spent in Discharge (Minutes): 30"
[2019-08-14 16:14] LABS: PLATELET ESTIMATE, MANUAL INCREASED (>450,000) (NORMAL); PLATELET MORPHOLOGY NORMAL APPEARANCE (NORMAL); RBC MORPHOLOGY (MULTIPLE) NORMAL APPEARANCE (NORMAL)
[2019-08-14 18:09] VITALS: BP 121/94
[2019-08-14] MEDS ORDERED: METOPROLOL TARTRATE 25 MG TABLET PO SCH ×2 (21:00)
== END 2019-08-14 18:50 | disposition short-term general hospital (02) | DRG 100 ==
LOC: EDUNIT# → ED 12:32 → MS2 15:51 → ICU 16:52
PROVIDERS: ADMIT Internal Medicine; ATTEND Internal Medicine
DX: R56.9 Unspecified convulsions (principal); J18.9 Pneumonia, unspecified organism; I21.3 ST elevation (STEMI) myocardial infarction of unspecified site; M62.82 Rhabdomyolysis; E87.1 Hypo-osmolality and hyponatremia; N17.9 Acute kidney failure, unspecified; I47.2 Ventricular tachycardia; Q05.9 Spina bifida, unspecified; G80.8 Other cerebral palsy; R55 Syncope and collapse; E87.6 Hypokalemia; E83.39 Other disorders of phosphorus metabolism; E86.0 Dehydration; F17.200 Nicotine dependence, unspecified, uncomplicated; Z96.89 Presence of other specified functional implants; S00.81XA Abrasion of other part of head, initial encounter; W18.12XA Fall from or off toilet with subsequent striking against object, initial encounter; Y93.E1 Activity, personal bathing and showering; Y92.002 Bathroom of unspecified non-institutional (private) residence as the place of occurrence of the external cause; Z99.3 Dependence on wheelchair; Z20.828 Contact with and (suspected) exposure to other viral communicable diseases
CPT/HCPCS: 36415; 70450; 71045; 71250; 72125; 80048; 80053; 80076; 82040; 82330; 82550; 82553; 83690; 83735; 83880; 84100; 84132; 84484; 85025; 85379; 87040; 87150; 93005; 93306; 96361; 96365; 96375; 99285; 99291; A9270; J1650; J2765; J7040; J7120; U0004; 80320; 81599